=== PATIENT | female | born 1960 | race Caucasian/White ===

== ENCOUNTER 2018-05-14 12:09 | Emergency (ER) | payer OTHER, SELFPAY ==
[2018-05-14] VITALS (53 sets, daily range): BP systolic 98–179; BP diastolic 66–109; PULSE 60–76; RESP 12–27; TEMP 36.7; O2SAT 93–97
--- NOTE | 2018-05-14 12:18 | DI.RAD_ITS ---
SYMPTOM/DIAGNOSIS: CHEST PAIN PA AND LATERAL CHEST: The heart is normal in size. The lungs are clear. The mediastinal structures and pleura appear intact. CONCLUSION: Normal chest.
[2018-05-14 12:48] LABS: Absolute Basophil Count 0.06 k/cumm (0.0-0.2); Absolute Eosinophil Count 0.18 k/cumm (0.0-0.7); Absolute Lymphocyte Count 1.95 k/cumm (1.2-3.4); Absolute Monocyte Count 0.24 k/cumm (0.11-0.7); Absolute Neutrophil Count 3.66 k/cumm (1.2-6.7); Atypical Lymphocytes % 7; Diff Comment Manual Differential; HGB 15.2 g/dL (12.0-15.5); Mean Corp. HGB Concentration 33.8 g/dL (32.0-36.0); Mean Corpuscular Hemoglobin 31.4 pg (27.0-33.0); Mean Platelet Volume 11.5 fL (8.0-11.0); Platelet Count 251 x1000/uL (130-400); RBC 4.84 m/cumm (4.00-5.20); RBC Distribution Width 13.2 % (11.7-14.6); RBC Morphology Normal
[2018-05-14 12:55] LABS: ALT 33 U/L (12-78); AST 24 U/L (15-37); Albumin 3.6 g/dL (3.4-5.0); Alkaline Phosphatase 93 U/L (46-116); BUN 18 mg/dL (7-18); Bilirubin, Direct 0.11 mg/dL (0.00-0.20); Bilirubin, Total 0.5 mg/dL (0.2-1.0); CREATININE 0.82 mg/dL (0.55-1.02); Calcium 8.9 mg/dL (8.5-10.1); Chloride 104 mmol/L (98-107); Glucose 94 mg/dL (70-100); Lipase 55 U/L (73-393); Magnesium 2.1 mg/dL (1.8-2.4); Sodium 141 mmol/L (136-145); Total Protein 7.3 g/dL (6.4-8.2)
[2018-05-14 12:56] LABS: Troponin I < 0.02 ng/mL (0.00-0.06)
[2018-05-14 13:42] LABS: D-Dimer 490 ng/mlFEU (<500)
--- NOTE | 2018-05-14 15:42 | W.ED.GENAD ---
Discharge Plan Disposition Patient Disposition: HOME Condition: Improving Discharge Details Chief Complaint: Chest Pain Clinical Impression: Chest wall pain, Neck pain, Headache Primary Care Provider: Ann-Marie Shipley ED Provider: Belle Ryan Home Meds and New Rx's Prescriptions: Continue cholecalciferol (vitamin D3) 1,000 UNIT capsule 1,000 unit PO DAILY RF: 0 liothyronine [Cytomel] 5 MCG tablet 5 mcg PO DAILY Qty: 90 RF: 12 levothyroxine 75 MCG tablet 75 mcg PO DAILY Qty: 90 RF: 12 Discharge Instructions Instructions: Chest Wall Pain (ED), General Headache (ED), Neck Pain (ED) Additional Instructions: Drink plenty of fluids and get plenty of rest. You will receive a call from radiology regarding date and time for outpatient stress test. You will receive a call from care management regarding a follow-up appointment with your primary care doctor. Return to the emergency department for any worsening or new concerning symptoms. Discharge Data Discharge Date/Time-TO BE ENTERED AT DEPARTURE: 05/14/18 18:08 Discharge Physician: Belle Ryan Medical Decision Making 57-year-old female who presents to the ED with a complaint of intermittent chest tightness off and on for years, returned left chest since last night. Resolved and then returned this morning. No associated symptoms. Pain currently 4/10. She also admits to bilateral neck pain and headache. Denies fever, cough, shortness of breath, nausea, vomiting or dizziness. Wells score low. No DVT/PE risk factors. Blood pressure hypertensive at 179/94. Remainder vitals within normal limits. Patient appears nontoxic and in no acute distress. Her left anterior chest is tender to palpation. She denies injury. There is no evidence of trauma. Her abdomen is soft and nontender. Her lungs are clear to auscultation. No calf swelling or tenderness. No meningeal signs. Afebrile. EKG notes a rate of 71, sinus, no acute ST elevation or depression, QTc 415. QRS 82. Differential diagnosis includes musculoskeletal chest pain, ACS, PE, dissection, anxiety. Will do a cardiac workup, d-dimer, chest x-ray and give a dose of Toradol. Labs reviewed and unremarkable. Troponin negative. D-dimer negative. Chest x-ray negative. 1700 --second troponin negative. Patient states she feels much better and is requesting to go home. States headache is resolved. States neck and chest pain much improved. Patient states she has had this pain for years and is frustrated why she cannot find a diagnosis. She states she has been told before that she has atypical chest pain. Last stress test 2014 negative. Will arrange for outpatient stress test. Patient placed on care management list to arrange for follow-up appointment with her primary care doctor within the next week. Patient was instructed return here immediately if worse. HPI General Mode of arrival: ambulatory. Date/Time Provider Initiated Documentation: 05/14/18 12:17. Limitations to Documentation: no limitations. Information obtained by: patient. HPI Narrative: Patient is a 57-year-old female presents the ED with a complaint of left-sided chest pain since last night. Patient states she feels diffuse anterior chest tightness as well. Patient states she has had similar chest tightness off and on for years for which she has had workups which have been negative. She had a negative stress test in 2013. Patient states she also has a diffuse headache as well as tightness in her neck. She states her chest pain is 7/10 at its worst and is currently 4/10. She has not taken any medication for this pain. She denies any aggravating or alleviating factors. She denies fever, cough, shortness of breath, nausea, vomiting, dizziness, recent surgeries, leg pain or swelling. She states she recently traveled on a flight to [place] this past weekend with flight duration of 90 minutes. Past medical history: None Surgical history: Appendectomy, , hysterectomy, tonsillectomy Social history: Occasional alcohol, denies tobacco or drugs Medications: Synthroid, Cytomel, vitamin D3 Allergies: None PCP: Dr. Shipley Related Data Home Medications Medication Instructions Recorded Confirmed cholecalciferol (vitamin D3) 1,000 unit PO DAILY 06/30/13 05/14/18 levothyroxine 75 mcg PO DAILY #90 tab-cap 12/04/17 05/14/18 liothyronine [Cytomel] 5 mcg PO DAILY #90 tab-cap 12/04/17 05/14/18 Previous Rx's Medication Instructions Recorded levothyroxine 75 mcg PO DAILY #90 tab-cap 12/04/17 liothyronine [Cytomel] 5 mcg PO DAILY #90 tab-cap 12/04/17 Allergies Allergy/AdvReac Type Severity Reaction Status Date / Time No Known Allergies Allergy Unverified 05/14/18 12:23 General Stated Complaint: Chest Pain TIFFANY: 2 Review of Systems Review of Systems All systems reviewed & are unremarkable except as noted in HPI and below Constitutional Denies chills, Denies excessive sweating, Denies fatigue, Denies fever(s), Denies weakness and Denies weight loss Eyes Reports system reviewed and no additional complaints, except as docu and Denies blurry vision ENT Denies vertigo, Denies dizziness, Denies otalgia, Denies nasal congestion, Denies sore throat and Denies throat swelling Cardiovascular Reports chest pain, Denies syncope, Denies rapid heart rate and Denies dyspnea Respiratory Denies dyspnea Gastrointestinal Denies abdominal pain, Denies diarrhea and Denies vomiting Genitourinary Denies hematuria, Denies dysuria and Denies flank pain Musculoskeletal Denies back pain and Denies joint swelling Integumentary/Breasts Denies lesions and Denies rash Neurologic Denies behavioral changes, Denies confusion, Denies vertigo, Denies dizziness, Denies syncope and Denies weakness Psychiatric Denies behavioral changes, Denies confusion and Denies depression Endocrine Denies excessive sweating and Denies fatigue Hematologic/Lymphatic Denies easy bruising and Denies lymphadenopathy Allergic/Immunologic Denies throat swelling PFSH Family History Mother Cerebrovascular accident Father Neoplasm Sister No problems noted. Brother No problems noted. Grandfather No problems noted. Grandfather No problems noted. Grandmother CAD (coronary artery disease) Grandmother No problems noted. Sister No problems noted. Daughter No problems noted. Daughter No problems noted. Daughter No problems noted. Social History household members: none marital status: current occupational status: employed current occupation: [employer] ([employer]) frequency: 3-4 times per week duration: 15-30 minutes/day Smoking/Tobacco Use Status: Never alcohol intake: current alcohol intake frequency: a few times a month substance use type: does not use bethany/zoroastrianism: Muslim special bethany needs: No Surgical History Appendectomy section (06/30/91) section (06/30/94) hysterectomy (11/27/08) Exam Const General: cooperative and healthy appearing Orientation: alert and awake HENMT Head: normal to inspection Ears: hearing grossly normal bilaterally and external ears normal General nose exam: external nose normal Face and sinus: normal facial exam Mouth: oral mucosae normal Teeth and gingiva: dentition normal Throat: posterior oropharynx normal Eyes General: appearance normal, both eyes and all related structures Eyelids: eyelids normal Pupils: PERRL EOM: EOM intact bilaterally Neck Neck: normal visual inspection Lymphatic: no lymphadenopathy noted Chest Chest: normal inspection of the chest and tenderness (Left anterior chest left of midline of sternum. No edema, ecchymosis or rash) Resp Effort & Inspection: normal respiratory effort and able to speak in complete sentences Auscultation: clear to auscultation bilaterally Cardio Rate: regular rate Rhythm: regular rhythm GI Inspection: normal to inspection Palpation: soft, not firm, no guarding, no hepatosplenomegaly, no masses and nontender Auscultation: normal bowel sounds Back/Spine/Pelvis Back: no CVA tenderness Skin General skin exam: no rashes or lesions noted Neuro General: alert and awake Cognition: normal cognition Speech: speech normal Gait: normal gait Motor: muscle tone normal throughout and strength 5/5 throughout Sensory Exam: no sensory deficits noted Extrem General: normal to inspection, full ROM and normal capillary refill Psych Appearance: grossly normal Mental Status: mental status grossly normal Speech and Movement: speech and movement normal Affect: normal affect Thought Process: normal Course Reevaluation(s) Additional Reevaluation(s): Laboratory Tests Range/Units 05/14/18 15:13 WBC (4.4-10.8) k/cumm RBC (4.00-5.20) m/cumm Hgb (12.0-15.5) g/dL Hct (36.0-46.0) % MCV (80-95) fL MCH (27.0-33.0) pg MCHC (32.0-36.0) g/dL RDW (11.7-14.6) % Plt Count (130-400) x1000/uL MPV (8.0-11.0) fL Immature Gran % Neutrophils % Lymphocytes % Monocytes % Eosinophils % Basophils % Absolute Neutrophils (1.2-6.7) k/cumm Absolute Lymphocytes (1.2-3.4) k/cumm Absolute Monocytes (0.11-0.7) k/cumm Absolute Eosinophils (0.0-0.7) k/cumm Absolute Basophils (0.0-0.2) k/cumm Differential Comment Atypical Lymphocytes RBC Morphology D-Dimer (<500) ng/mlFEU Sodium (136-145) mmol/L Potassium (3.5-5.1) mmol/L Chloride (98-107) mmol/L Carbon Dioxide (21.0-32.0) mmol/L Anion Gap (3-11) mmol/L BUN (7-18) mg/dL Creatinine (0.55-1.02) mg/dL Estimated GFR/1.73 m2 (mL/min/1.73m2) Glucose (70-100) mg/dL Calcium (8.5-10.1) mg/dL Magnesium (1.8-2.4) mg/dL Total Bilirubin (0.2-1.0) mg/dL Conjugated Bilirubin (0.00-0.20) mg/dL AST (15-37) U/L ALT (12-78) U/L Alkaline Phosphatase (46-116) U/L Troponin I (0.00-0.06) ng/mL < 0.02 Total Protein (6.4-8.2) g/dL Albumin (3.4-5.0) g/dL Lipase (73-393) U/L Vital Signs Temperature 98.1 F 05/14/18 12:19 Pulse 72 05/14/18 12:19 Respiratory Rate 16 05/14/18 12:19 Blood Pressure 179/94 H 05/14/18 12:19 Pulse Oximetry 96 05/14/18 12:19 Temperature 98.1 F 05/14/18 12:19 Temperature Source Skin 05/14/18 12:19 Pulse 72 05/14/18 12:19 Respiratory Rate 24 05/14/18 12:27 Respiratory Effort Non-Labored 05/14/18 12:27 Respiratory Depth Normal 05/14/18 12:27 Respiratory Pattern Normal 05/14/18 12:27 Blood Pressure 179/94 H 05/14/18 12:19 Pulse Oximetry 96 05/14/18 12:19 Oxygen Delivery Method Room Air 05/14/18 12:19 Oxygen Flow Rate 0 05/14/18 12:19 Pain Level 4 05/14/18 12:27 Lab/Test Results Lab/Test Results: Laboratory Tests Range/Units 10/16/18 10/16/18 10/16/18 12:20 12:20 12:20 WBC (4.4-10.8) k/cumm 6.10 RBC (4.00-5.20) m/cumm 4.84 Hgb (12.0-15.5) g/dL 15.2 Hct (36.0-46.0) % 45.0 MCV (80-95) fL 93.0 MCH (27.0-33.0) pg 31.4 MCHC (32.0-36.0) g/dL 33.8 RDW (11.7-14.6) % 13.2 Plt Count (130-400) x1000/uL 251 MPV (8.0-11.0) fL 11.5 H Immature Gran % See Differential Neutrophils % 60.0 Lymphocytes % 25.0 Monocytes % 4.0 Eosinophils % 3.0 Basophils % 1.0 Absolute Neutrophils (1.2-6.7) k/cumm 3.66 Absolute Lymphocytes (1.2-3.4) k/cumm 1.95 Absolute Monocytes (0.11-0.7) k/cumm 0.24 Absolute Eosinophils (0.0-0.7) k/cumm 0.18 Absolute Basophils (0.0-0.2) k/cumm 0.06 Differential Comment Manual differential Atypical Lymphocytes 7 RBC Morphology Normal D-Dimer (<500) ng/mlFEU 490 Sodium (136-145) mmol/L 141 Potassium (3.5-5.1) mmol/L 4.0 Chloride (98-107) mmol/L 104 Carbon Dioxide (21.0-32.0) mmol/L 30.0 Anion Gap (3-11) mmol/L 7.0 BUN (7-18) mg/dL 18 Creatinine (0.55-1.02) mg/dL 0.82 Estimated GFR/1.73 m2 (mL/min/1.73m2) >= 60.00 Glucose (70-100) mg/dL 94 Calcium (8.5-10.1) mg/dL 8.9 Magnesium (1.8-2.4) mg/dL 2.1 Total Bilirubin (0.2-1.0) mg/dL 0.5 Conjugated Bilirubin (0.00-0.20) mg/dL 0.11 AST (15-37) U/L 24 ALT (12-78) U/L 33 Alkaline Phosphatase (46-116) U/L 93 Troponin I (0.00-0.06) ng/mL < 0.02 Total Protein (6.4-8.2) g/dL 7.3 Albumin (3.4-5.0) g/dL 3.6 Lipase (73-393) U/L 55 L
[2018-05-14] MEDS: Ketorolac 30 MG/ML VIAL IVP (16:01)
[2018-05-14 16:38] LABS: Troponin I < 0.02 ng/mL (0.00-0.06)
--- NOTE | 2018-05-15 09:09 | PDOC.ERCMPRO ---
Care Management Progress Note 05/15/18-Pt seen for chest wall pain on 05/14/[address] Levi. Stress test ordered,referral faxed and CM confirmed it has been received. F/U request within 1 week faxed to [facility] as Dr. Liana Shipley is Pt's PCP.
== END 2018-05-14 18:08 | disposition home or self-care (01) ==
PROVIDERS: Emergency Provider Physician Assistant; PCP Family Medicine
DX: R07.89 Other chest pain (principal); M54.2 Cervicalgia; R51 Headache
CPT/HCPCS: 36415; 80053; 80076; 83690; 93005; 96374; 99285; 71046; 83735; 84484; 85025; 85379; 93010

== ENCOUNTER 2018-12-03 11:22 | Outpatient (CLI) | payer OTHER, SELFPAY ==
--- NOTE | 2018-12-03 11:09 | DI.RAD_ITS ---
SYMPTOM/DIAGNOSIS: LT KNEE PAIN, M25.562 LEFT KNEE: Four views. No priors. There is mild periarticular spurring of the posterior patella. The joint spaces are otherwise well maintained. The bones are normally mineralized and intact. The soft tissues are unremarkable. A small joint effusion is present. IMPRESSION: Minimal osteoarthritis of the left knee.
== END 2018-12-03 11:42 ==
PROVIDERS: PCP Family Medicine; Visit Provider Family Medicine
DX: M25.562 Pain in left knee (principal); M17.12 Unilateral primary osteoarthritis, left knee; M25.462 Effusion, left knee
CPT/HCPCS: 73564

== ENCOUNTER 2018-12-17 00:17 | Outpatient (CLI) | payer OTHER, SELFPAY ==
--- NOTE | 2018-12-17 10:47 | DI.MRI_ITS ---
SYMPTOMS/DIAGNOSIS: LEFT KNEE SPRAIN, MEDIAL PAIN/SWELLING, NO KNOWN INJURY MRI OF THE LEFT KNEE: Comparison is made with plain films dated November,. The exam is somewhat limited by patient body habitus and motion. Fat-suppressed T2 axial, T1 and fat-suppressed T2 coronal, proton density and fat-suppressed T2 sagittal and proton density oblique sagittal sequences were performed. There is a small joint effusion. There is a small Howard's cyst. The cruciate and collateral ligaments and extensor mechanism appear intact. The medial meniscus appears mildly peripherally displaced and somewhat diminutive. There is some intrasubstance signal, but no definite intrasubstance tear. The menisci are not optimally evaluated due to mild motion and somewhat low resolution. No lateral meniscal tear is visible. There is some thinning of the patellar cartilage; however, this is also not well evaluated. A small subchondral cyst is seen in the tibia. IMPRESSION: Limited exam due to patient body habitus and mild motion. Degenerative changes are seen in the menisci and of the patellar cartilage. Small joint effusion and small Howard's cyst are also present.
--- NOTE | 2018-12-17 16:42 | DI.VRAD_ITS ---
EXAM: MR Left Lower Extremity Without Contrast, Knee EXAM DATE/TIME: 12/17/2018 11:36 AM CLINICAL HISTORY: 58 years old, female; Knee; Left; Patient HX: No history of surgery, no known injury, medial pain and swelling. TECHNIQUE: Imaging protocol: MR of the Left Lower extremity without contrast. Exam focused on the knee. COMPARISON: CR XR knee LT 4V AP,lat,annabella,pat 12/03/2018 10:58 AM FINDINGS: BONES/JOINTS/CARTILAGE: Patellofemoral compartment: There is a small joint effusion. There is thinning of the patellar articular cartilage. Femorotibial compartments: The medial lateral joint spaces are fairly well-preserved. Extensor mechanism: . No significant abnormality of the distal quadriceps tendon or patellar tendon. Medial meniscus:. There is a thin area of abnormal increased signal extending from the joint capsule to the inferior articular surface close to the free edge of the meniscus. Lateral meniscus: No definite tear Medial capsule/supporting structures: No acute tear Lateral capsule/supporting structures: No acute tear Anterior cruciate ligament: Unremarkable. No tear. Posterior cruciate ligament: Unremarkable. No tear. Musculature: Unremarkable. Soft tissues: There is a small amount of fluid in the semitendinosus bursa measuring 2.3 x 0.8 x 3.5 cm. IMPRESSION: 1. Findings consistent with a small oblique tear through the posterior horn of the medial meniscus. 2. Small joint effusion and popliteal cyst. 3. Mild chondromalacia patella. Dictated and Authenticated by: Jadiel Medellin MD. Ordering:CYN Jacobsen MD
== END 2018-12-17 00:37 ==
PROVIDERS: PCP Family Medicine; Visit Provider Family Medicine
DX: M25.562 Pain in left knee (principal); S83.8X2A Sprain of other specified parts of left knee, initial encounter; M17.12 Unilateral primary osteoarthritis, left knee; M25.462 Effusion, left knee; M71.22 Synovial cyst of popliteal space [Baker], left knee
CPT/HCPCS: 73721

== ENCOUNTER 2019-08-13 00:52 | Outpatient (CLI) | payer OTHER, SELFPAY ==
[2019-08-13 07:49] LABS: HGB 14.9 g/dL (12.0-15.5)
[2019-08-13 08:34] LABS: ALT 37 U/L (14-59); AST 20 U/L (15-37); Albumin 3.6 g/dL (3.4-5.0); Alkaline Phosphatase 78 U/L (46-116); Anion Gap 5.4 mmol/L (3-11); BUN 21 mg/dL (7-18); Bilirubin, Total 0.4 mg/dL (0.2-1.0); CO2 30.6 mmol/L (21.0-32.0); CREATININE 0.83 mg/dL (0.55-1.02); Calculated LDL 140 mg/dL; Chloride 107 mmol/L (98-107); Cholesterol 207 mg/dL (<200); Glucose 102 mg/dL (74-106); HDL Cholesterol 55 mg/dL (40-60); Potassium 4.3 mmol/L (3.5-5.1); Sodium 143 mmol/L (136-145); TSH (W/Ref FT4) 2.39 uIU/mL (0.36-3.74); Total Protein 6.6 g/dL (6.4-8.2); Triglyceride 64 mg/dL (<150)
== END 2019-08-13 01:12 ==
PROVIDERS: PCP Nurse Practitioner Adult Health; Visit Provider Nurse Practitioner Adult Health
DX: D64.9 Anemia, unspecified (principal); E03.9 Hypothyroidism, unspecified; R06.02 Shortness of breath; R07.89 Other chest pain; Z13.220 Encounter for screening for lipoid disorders; Z51.81 Encounter for therapeutic drug level monitoring; Z68.41 Body mass index [BMI] 40.0-44.9, adult; Z82.49 Family history of ischemic heart disease and other diseases of the circulatory system
CPT/HCPCS: 36415; 80053; 80061; 84443; 85014; 85018

== ENCOUNTER 2019-08-21 15:57 | Outpatient (REF) | payer OTHER, SELFPAY ==
--- NOTE | 2019-08-21 16:15 | PAPFT_PTH ---
PATIENT: Dianne Mckeon LOC: [facility] U#:[id number] AGE/SX: 58/F ROOM: RE08/21/[address]: Felicity Soni APRN : 1960 BED: DIS: 08/21/2019 SPEC #: [id number] RECD: 08/21/19 18:14 STATUS: YISEL REShantel #: [id number] VINCE: 08/21/19 16:[address]: Felicity Soni DEPT: [facility] Cytology RECD BY: Blossom Malone Tissues: 1 - CX/ENDOCX FOR PAP SMEARS Procedures: PAP THIN PREP/UVM Screening HPV DNA PROBE Comments: [id number]
== END 2019-08-21 16:17 ==
LOC: LBN 15:57
PROVIDERS: PCP Nurse Practitioner Adult Health; Visit Provider Nurse Practitioner Adult Health
DX: Z12.4 Encounter for screening for malignant neoplasm of cervix (principal); Z11.51 Encounter for screening for human papillomavirus (HPV)
CPT/HCPCS: 88142; 87624

== ENCOUNTER 2019-09-25 02:45 | Outpatient (CLI) | payer OTHER, SELFPAY ==
--- NOTE | 2019-09-25 15:58 | DI.MAMMO_ITS ---
EXAM: MAMMO SCREENING CLINICAL HISTORY: screening Z12.39 TECHNIQUE: Mammograms were interpreted according to the usual protocol including computer analysis w Ensequence CAD system, tomosynthesis and C-view imaging. COMPARISON: 2010 through 2018 FINDINGS: The breasts are composed of mainly fatty density , Breast Density category A. No suspicious masses or suspicious microcalcifications are seen. No skin thickening or abnormal axillary lymph nodes are seen. There has been no significant change from prior exams. IMPRESSION: BIRADS Category 1, negative mammogram. Yearly screening mammography is recommended. Breast density category A.
== END 2019-09-25 03:05 ==
PROVIDERS: PCP Nurse Practitioner Adult Health; Visit Provider Nurse Practitioner Adult Health
DX: Z12.31 Encounter for screening mammogram for malignant neoplasm of breast (principal)
CPT/HCPCS: 77063; 77067

== ENCOUNTER 2020-04-02 04:14 | Outpatient (CLI) | payer OTHER, SELFPAY ==
--- NOTE | 2020-04-02 08:00 | DI.MRI_ITS ---
EXAM: MR BRAIN WO CLINICAL HISTORY: new onset headache with vertigo, NEW ONSET FLYNN, R51. TECHNIQUE: Multiplanar multisequence MRI of the brain was performed. CONTRAST MATERIAL: Noncontrast COMPARISON: No exams were available for comparison FINDINGS: VENTRICLES AND EXTRA AXIAL SPACES: Normal in size and morphology for the patient's age. HEMORRHAGE: None. CEREBRAL PARENCHYMA: No focus of restricted diffusion to suggest acute infarct. No space-occupying le narendra identified. MIDLINE SHIFT: None. BRAINSTEM/CEREBELLUM: Normal. VISUALIZED PARANASAL SINUSES/MASTOIDS: Clear. Vascular flow voids: Intact. Orbits and pituitary: Unremarkable. IMPRESSION: Unremarkable MRI of the brain. DATA REPOSITORY:
== END 2020-04-02 04:34 ==
PROVIDERS: PCP Nurse Practitioner Adult Health; Visit Provider Psychiatry & Neurology Neurology
DX: R51 Headache (principal); R42 Dizziness and giddiness
CPT/HCPCS: 70551

== ENCOUNTER 2020-08-18 04:33 | Outpatient (CLI) | payer OTHER, SELFPAY ==
[2020-08-18 09:25] LABS: Hemoglobin A1C 5.4 % (<5.7)
[2020-08-18 10:13] LABS: Anion Gap 5.2 mmol/L (3-11); BUN 16 mg/dL (7-18); CO2 30.8 mmol/L (21.0-32.0); CREATININE 0.84 mg/dL (0.55-1.02); Calcium 9.2 mg/dL (8.5-10.1); Calculated LDL 131 mg/dL (<100); Chloride 107 mmol/L (98-107); Cholesterol 209 mg/dL (<200); Glucose 94 mg/dL (74-106); HDL Cholesterol 61 mg/dL (40-60); Potassium 4.7 mmol/L (3.5-5.1); Sodium 143 mmol/L (136-145); TSH (W/Ref FT4) 2.22 uIU/mL (0.36-3.74); Triglyceride 85 mg/dL (<150)
== END 2020-08-18 04:53 ==
PROVIDERS: PCP Nurse Practitioner Adult Health; Visit Provider Nurse Practitioner Adult Health
DX: R73.01 Impaired fasting glucose (principal); E78.00 Pure hypercholesterolemia, unspecified; E03.9 Hypothyroidism, unspecified; R03.0 Elevated blood-pressure reading, without diagnosis of hypertension; F32.9 Major depressive disorder, single episode, unspecified
CPT/HCPCS: 36415; 80048; 80061; 83036; 84443

== ENCOUNTER 2020-09-29 01:22 | Outpatient (CLI) | payer OTHER, SELFPAY ==
--- NOTE | 2020-09-29 07:30 | DI.MAMMO_ITS ---
EXAM: MG MAMMO SCREENING CLINICAL HISTORY: screening,z12.39 TECHNIQUE: Bilateral full field digital CC and MLO mammographic images were obtained with 3D tomosyn thesis and utilizing computer aided detection (CAD). COMPARISON: Available for comparison. FINDINGS: Masses/Architectural Distortion: None seen. Microcalcifications: No suspicious pleomorphic-type are seen. Skin Thickening/Nipple Retraction: None. IMPRESSION: 1. No significant interval change with no specific features of malignancy noted. 2. Unless there is more urgent need, screening mammography is recommended, as per [employer] guidelines. BI-RADS Category 1 - Negative Breast Density - Category A - Almost entirely fatty Breast density category C or D implies that the patient has dense breast tissue. Dense breast tissue is very common and is not abnormal but dense breast tissue can make it harder to find cancer on a ma mmogram. Also, dense breast tissue may increase their breast cancer risk. This information about the result of the mammogram report was provided to the patient to raise their awareness. Use this report when you speak with the patient about their risks for breast cancer, which includes their family hist ory. At that time, you may recommend for more screening tests (Ultrasound or MRI) as they might be us eful based on their risk. A negative radiographic report should not delay biopsy if a dominant or clinically suspicious mass is present. Up to ten percent of cancers are not identified on mammography. A negative report may reinforce clinical impression. Adenosis and dense breasts may obscure an underlying neoplasm. False positive reports average 6 to 10%. Patient will receive a letter notifying them of these results.
== END 2020-09-29 01:42 ==
PROVIDERS: PCP Nurse Practitioner Adult Health; Visit Provider Nurse Practitioner Adult Health
DX: Z12.31 Encounter for screening mammogram for malignant neoplasm of breast (principal)
CPT/HCPCS: 77063; 77067

== ENCOUNTER 2021-01-18 03:20 | Outpatient (CLI) | payer OTHER, SELFPAY ==
[2021-01-18 13:17] LABS: Abs Immature Grans 0.01 10^3/uL (0.0-0.06); Absolute Basophil Count 0.05 10^3/uL (0.0-0.2); Absolute Eosinophil Count 0.16 10^3/uL (0.0-0.7); Absolute Lymphocyte Count 2.12 10^3/uL (1.2-3.4); Absolute Monocyte Count 0.47 10^3/uL (0.1-0.8); Absolute Neutrophil Count 3.88 10^3/uL (1.2-6.7); Basophils % 0.7; Eosinophils % 2.4; HCT 43.3 % (36.0-46.0); HGB 14.7 g/dL (11.2-15.7); Immature Grans % 0.1; Lymphocytes % 31.7; MCH 31.1 pg (27.0-33.0); MCHC 33.9 % (32.0-36.0); MCV 91.5 fL (80-95); MPV 10.4 fL (8.0-11.0); Neutrophils % 58.1; Nucleated RBC 0 %; Platelet Count 239 10^3/uL (130-400); RBC 4.73 10^6/uL (3.93-5.22); RDW 12.4 % (11.7-14.6); RDW-SD 41.4 fL; WBC 6.69 10^3/uL (4.4-10.8)
[2021-01-18 16:20] LABS: ALT 33 U/L (14-59); AST 24 U/L (15-37); Albumin 3.9 g/dL (3.4-5.0); Alkaline Phosphatase 87 U/L (46-116); Anion Gap 10.5 mmol/L (3-11); BUN 19 mg/dL (7-18); Bilirubin, Total 0.5 mg/dL (0.2-1.0); CO2 26.5 mmol/L (21.0-32.0); CREATININE 0.8 mg/dL (0.55-1.02); Chloride 106 mmol/L (98-107); Glucose 105 mg/dL (74-106); Potassium 4.5 mmol/L (3.5-5.1); Sodium 143 mmol/L (136-145); TSH (W/Ref FT4) 0.99 uIU/mL (0.36-3.74); Total Protein 6.8 g/dL (6.4-8.2); Vitamin B12 391 pg/mL (193-986)
== END 2021-01-18 03:21 | disposition home or self-care (01) ==
LOC: LBO 03:20
PROVIDERS: PCP Nurse Practitioner Adult Health; Visit Provider Nurse Practitioner Adult Health
DX: R53.83 Other fatigue (principal); E03.9 Hypothyroidism, unspecified
CPT/HCPCS: 36415; 80053; 82607; 84443; 85025

== ENCOUNTER 2021-11-01 04:27 | Outpatient (CLI) | payer OTHER, SELFPAY ==
[2021-11-01 10:27] LABS: Hemoglobin A1C 5.6 % (<5.7)
[2021-11-01 11:32] LABS: Anion Gap 9.4 mmol/L (3-11); BUN 15 mg/dL (7-18); CO2 28.6 mmol/L (21.0-32.0); CREATININE 0.9 mg/dL (0.55-1.02); Calcium 9.2 mg/dL (8.5-10.1); Calculated LDL 132 mg/dL (<100); Chloride 105 mmol/L (98-107); Cholesterol 207 mg/dL (<200); Glucose 95 mg/dL (74-106); HDL Cholesterol 60 mg/dL (40-60); Potassium 4.5 mmol/L (3.5-5.1); Sodium 143 mmol/L (136-145); TSH (W/Ref FT4) 1.34 uIU/mL (0.36-3.74); Triglyceride 76 mg/dL (<150)
== END 2021-11-01 04:28 | disposition home or self-care (01) ==
LOC: LBO 04:27
PROVIDERS: PCP Nurse Practitioner Adult Health; Visit Provider Nurse Practitioner Adult Health
DX: R73.01 Impaired fasting glucose (principal); E03.9 Hypothyroidism, unspecified; Z13.220 Encounter for screening for lipoid disorders; Z51.81 Encounter for therapeutic drug level monitoring
CPT/HCPCS: 36415; 80048; 80061; 83036; 84443

== ENCOUNTER 2021-11-11 00:25 | Outpatient (CLI) | payer OTHER, SELFPAY ==
--- NOTE | 2021-11-11 07:53 | DI.MAMMO_ITS ---
Exam(s) MAMMO SCREENING EXAM: MAMMO SCREENING CLINICAL HISTORY: screening,Z12.39 TECHNIQUE: Bilateral full field digital CC and MLO mammographic images were obtained with 3D tomosyn thesis and utilizing computer aided detection (CAD). COMPARISON: Available for comparison. FINDINGS: Masses/Architectural Distortion: None seen. Microcalcifications: No suspicious pleomorphic-type are seen. Skin Thickening/Nipple Retraction: None. IMPRESSION: 1. No significant interval change with no specific features of malignancy noted. 2. Unless there is more urgent need, screening mammography is recommended, as per [employer] guidelines. BI-RADS Category 1 - Negative Breast Density - Category B - Scattered areas of fibroglandular density Breast density category C or D implies that the patient has dense breast tissue. Dense breast tissue is very common and is not abnormal but dense breast tissue can make it harder to find cancer on a ma mmogram. Also, dense breast tissue may increase their breast cancer risk. This information about the result of the mammogram report was provided to the patient to raise their awareness. Use this report when you speak with the patient about their risks for breast cancer, which includes their family hist ory. At that time, you may recommend for more screening tests (Ultrasound or MRI) as they might be us eful based on their risk. A negative radiographic report should not delay biopsy if a dominant or clinically suspicious mass is present. Up to ten percent of cancers are not identified on mammography. A negative report may reinforce clinical impression. Adenosis and dense breasts may obscure an underlying neoplasm. False positive reports average 6 to 10%. Patient will receive a letter notifying them of these results.
== END 2021-11-11 00:45 ==
PROVIDERS: PCP Nurse Practitioner Adult Health; Visit Provider Nurse Practitioner Adult Health
DX: Z12.31 Encounter for screening mammogram for malignant neoplasm of breast (principal)
CPT/HCPCS: 77063; 77067

== ENCOUNTER 2022-10-16 06:10 | Day surgery (SDC) | payer OTHER, SELFPAY ==
--- NOTE | 2022-10-15 17:04 | W.ANESPRE ---
General Info Date of Service Date Performed: 10/16/22 Height: 5 ft 1.5 in Weight: 109.372 kg Body Mass Index (BMI): 44.8 Surgical Procedure: Operation Date: 10/16/22 07:35 Proposed Procedure Side Surgeon pratik Merlos MD Meds Allergies and Home Medications Allergies Allergy/AdvReac Type Severity Reaction Status Date / Time No Known Allergies Allergy Verified 10/13/22 12:52 Home Medication Medication Instructions Recorded cholecalciferol (vitamin D3) 25 1,000 unit PO DAILY 06/30/13 mcg (1,000 unit) capsule bupropion HCl 150 mg 24 hr tablet, 150 mg PO QAM #90 tabs 11/02/21 extended release levothyroxine 75 mcg tablet 75 mcg PO DAILY #90 tab-caps 11/02/21 liothyronine 5 mcg tablet (Cytomel) 5 mcg PO DAILY #90 tab-caps 11/02/21 Current Visit Medications: Current Medications Generic Name Dose Route Start Last Admin Trade Name Freq PRN Reason Stop Dose Admin Ringer's Solution 1,000 mls @ 80 mls/hr 10/16/22 06:00 IV 11/12/22 23:59 INFUSION BETHANIE IV Miscellaneous Supplies 1 each 10/16/22 06:00 Iv Access IV 11/12/22 23:59 DIRECTED BETHANIE Sodium Chloride 0 ml 10/16/22 06:00 Normal Saline Flush 10 Ml Syr IV 11/12/22 23:59 PRN PRN Sodium Chloride 0 ml 10/16/22 06:00 Normal Saline 10 Ml Vial IJ 11/12/22 23:59 DIRECTED PRN Sterile Water 0 ml 10/16/22 06:00 Water,Injection,Sterile 10 Ml Vial IJ 11/12/22 23:59 DIRECTED PRN PFSH Active Problems Active Problems: Problem Status Onset Code Depression ~2019 F32.9 Impaired fasting glucose ~07/2019 R73.01 Atypical chest pain ~2014 R07.89 BMI 40.0-44.9, adult 04/06/15 Z68.41 Acquired hypothyroidism 06/30/13 E03.9 Medical History Medical History Acute left-sided thoracic back pain (08/03/16) Adjustment disorder with mixed anxiety and depressed mood 06/30/13 related to loss of Angina pectoris syndrome 11/09/14 Elevated BP without diagnosis of hypertension Single time 11/2019, nil else Grief 06/30/13 age 49 History of gluten sensitivity (08/01/13) A. Despathy Knee pain L--improved s/p PT New onset headache Severe episodes x2 2019; migraine variant, NEG CT-head; Neuro consult Fall 2019 Rosacea (06/30/13) Snoring Sleep study--2012 upper airway resistant syndrome with associated sleep fragmentation (oral julee rec) Upper airway resistance syndrome s/p sleep study 2012 Vertigo Severe episodes x2 2019; migraine variant, NEG CT-head; Neuro consult Fall 2019 Surgical History Surgical History (Updated 10/16/22 @ 06:35 by Isabell Wiseman RN) H/O section 07/30/90 H/O: hysterectomy Cervix remains (cont pap screening) 07/30/08 Abnormal uterine bleeding w/uterine fibroids History of hysterectomy Hx of appendectomy S/P appendectomy (~1978) Tobacco Smoking/Tobacco Use Status: Never Passive smoking exposure: No Alcohol Alcohol Intake: current Alcohol intake frequency: a few times a month Alcohol type: wine Substance Use Substance use: Never Substance use type: does not use Vital Signs and Lab Results Vital Signs Most Recent Vital Signs in EMR: Temp Pulse Resp BP Pulse Ox 36.2 C L 74 16 155/94 H 98 10/16/22 06:25 10/16/22 06:25 10/16/22 06:25 10/16/22 06:25 10/16/22 06:25 Lab Results Blood Type / Crossmatch: No Data to Display Complete Blood Count: No Data to Display Complete Metabolic Panel: No Data to Display Liver Function Panel: No Data to Display Coagulation Panel: No Data to Display Cardiac Panel: No Data to Display Arterial Blood Gas: No Data to Display Venous Blood Gas: No Data to Display Pancreas Panel: No Data to Display Thyroid Panel: No Data to Display Infectious Disease: No Data to Display Blood Cultures: No Data to Display Toxicology Panel: No Data to Display Imaging and Studies Imaging and Studies Study information below may be from another EMR and interpreted by another provider. Please see original notes in EMR for more complete details. Stress Test Summary: 09/14: no defects noted, LVEF 62%. Anesthesia Assessment and Plan Anesthesia History Personal History: No History of Anesthesia Complications Family History: No Family History of Anesthesia Complications Exercise Tolerance Exercise Tolerance: Metabolic Equivalents>4 Cardiac & Pulmonary Exam Cardiac Exam: Normal S1/S2 Heart Sounds Pulmonary Exam: Clear Bilateral Breath Sounds Implantable Cardiac Device Does patient have a Pacemaker or an ICD?: No Airway Exam Known Difficult Airway: No Mallampati Class: 3 Mouth Opening: Normal (> 3cm) Thyromental Distance: Greater than 3 cm Neck Range of Motion: Full ROM Neck Circumference: Normal Teeth Condition: Normal Dentition ASA Classification ASA Score: ASA 3 Emergency Case?: No NPO Status NPO Status: NPO Clears >2 hours, Solids >8 hours Anesthesia Plan Resuscitation Status: Full Code Anesthesia Technique: General Anesthesia Airway Planned: Natural Airway Monitors Used: Standard Monitors Preoperative Comments:: 61 yo female for screening colo. Sig PMHx: depression/anxiety, BMI >40, back pain, hypothyroid (on replacement), vertigo, migraine, ROSSANA, never smoker, occ EtOH.
--- NOTE | 2022-10-15 20:06 | PDOC.DSDIS_ITS ---
Date of service: 10/16/22 Time of Service: 07:46 Discharge Plan Disposition Patient Disposition: Home Condition: Good Discharge Details Reason For Visit: Colonoscopy Attending Provider: Garfield Merlos Primary Care Provider: Felicity Soni Home Meds and New Rx's Prescriptions: Continued bupropion HCl 150 mg tablet extended release 24 hr 150 mg PO QAM Qty: 90 3RF Rx Instructions: Dose reduction 11/02/21 levothyroxine 75 mcg tablet 75 mcg PO DAILY Qty: 90 3RF Rx Instructions: Thyroid; take on empty stomach in morning liothyronine [Cytomel] 5 mcg tablet 5 mcg PO DAILY Qty: 90 3RF cholecalciferol (vitamin D3) 1,000 UNIT capsule 1,000 unit PO DAILY Discharge Instructions Additional Instructions: Dianne, we were able to complete your colonoscopy without any difficulty today. The quality of the preparation was outstanding. I did not see any evidence of tumors or polyps. You should have another colonoscopy in 10 years 1. If tolerated, consume a soft, low fiber diet for 1-2 days. 2[address] Do not drive, drink alcohol, operate machinery, make critical decisions, or do activities that require coordination or balance for 24 hours. 3. Because air was put into your colon during the procedure, expelling air from your rectum (passing gas or farting) is normal. 4. You may not have a bowel movement for 1-3 days because of the colonoscopy pre p. This is normal. 5. Go directly to the emergency room if you notice any of the following: Develop chills (warm to touch), or if you have a thermometer and your temperature is above 101 Difficulty breathing or difficultly swallowing Persistent vomiting Severe abdominal pain, other than gas cramps Severe chest pain Black, tarry stools Any bleeding ? exceeding one tablespoon 6. Call your physician if the site where your intravenous was started becomes red, swollen, painful, and warm to touch. 7. Your physician has reviewed your pre-procedure medications. Please continue to take those medications as previously ordered. You will be given specific information/education regarding any changes to your medications before leaving. Activity:: Activity as Tolerated Diet:: As Tolerated Discharge Orders Discharge Orders: Discharge Order (Routine); Ordered 10/15/22 Ordered By: Garfield Merlos DS: Diagnosis Discharge Diagnosis (1) Screening for colon cancer: Status: Acute Asessment and Plan: Normal colonoscopy, follow-up in 10 years
--- NOTE | 2022-10-15 20:07 | W.COLOREPORT ---
Date of service: 10/16/22 Time of Service: 07:47 Colonoscopy Report Date of procedure: 10/16/22 Pre-op diagnosis general: Screening colonoscopy Post-op diagnosis procedure note: same Procedure: Colonoscopy Surgeon: Garfield Merlos Anesthesia Type: General:No Airway Estimated blood loss (mL): 0 Complications: None Disposition: same day Indications: Dianne is 61 years old and she is undergoing her second screening colonscopy Prep: Miralax/Dulcolax Procedure Start Time: 07:28 Procedure End Time: 07:38 Retraction Time: 6 Findings: Normal colonoscopy Procedure Description: After the induction of monitored anesthetic care, and with the patient in left lateral decubitus position, I began by performing an external anorectal exam.? Perineum and skin were normal, as was the anal verge.? There was no evidence of external hemorrhoids.? Next, I performed a digital rectal exam.? I did not appreciate any abnormal findings.? Next, I advanced a colonoscope into the rectal vault.? I performed retroflexion.? This was normal.? Using insufflation, I then advanced the colonoscope beyond the rectal folds and into the sigmoid colon before advancing towards the cecum.? The quality of the prep was outstanding.? The scope was noted to be in the cecum by identification of the ileocecal valve and appendiceal orifice.? I then began withdrawing the colonoscope using repeated irrigation as necessary for full evaluation of the colonic mucosa. ?Once the scope was withdrawn to the level of the rectum, great care was taken to examine portions of the rectal folds.? Finally, the scope was withdrawn and the patient was brought to the same-day surgery recovery unit as the anesthetic wore off. ?The findings and instructions were shared with the patient prior to discharge.
[2022-10-16 06:25] VITALS: BP 155/94; PULSE 74; RESP 16; TEMP 36.2; O2SAT 98
[2022-10-16] MEDS: Lactated Ringers 1,000 ML 80 ML IV (06:54)
[2022-10-16 06:57] VITALS: BMI 44.8
[2022-10-16 07:43] VITALS: BP 132/72; PULSE 78; RESP 16; TEMP 36; O2SAT 93
--- NOTE | 2022-10-16 07:56 | W.ANESPOSTOP ---
Postoperative Evaluation Date, Time and Location Date Performed: 10/16/22 Time Performed: 07:48 Patient Location: Day Surgery Unit Vital Signs Most Recent Imported Vital Signs: Most Recent Vital Signs Temp Pulse Resp BP Pulse Ox 36 C L 78 16 132/72 93 10/16/22 07:43 10/16/22 07:43 10/16/22 07:43 10/16/22 07:43 10/16/22 07:43 Pain Score Most Recent Pain Score: Most Recent Pain Score Pain Level 0 10/16/22 07:43 Assessment Mental Status: Awake (Alert & Oriented to Patient Baseline) Airway and Respiratory Function: Patent airway with normal (patient baseline) respiratory exam Cardiovascular Function: Hemodynamically Stable Hydration Status: Adequately Hydrated Nausea & Vomiting: No Nausea or Vomiting Pain: Pt. Denies Any Pain Peripheral Nerve Block: Patient did not receive a nerve block
[2022-10-16 08:15] VITALS: BP 142/99; PULSE 71; RESP 16; TEMP 36.4; O2SAT 95
== END 2022-10-16 08:25 | disposition home or self-care (01) ==
PROVIDERS: PCP Nurse Practitioner Adult Health; Visit Provider Surgery
PROC: 0DJD8ZZ Inspection of Lower Intestinal Tract, Via Natural or Artificial Opening Endoscopic (ICD-10-PCS; CPT 45378; principal; 2022-10-16 07:30)
DX: Z12.11 Encounter for screening for malignant neoplasm of colon (principal); R73.01 Impaired fasting glucose
CPT/HCPCS: 45378

== ENCOUNTER 2022-10-16 22:12 | Emergency (ER) | payer OTHER, SELFPAY ==
[2022-10-16 22:19] VITALS: BP 157/109; PULSE 86; RESP 24; TEMP 36.6; O2SAT 98
--- NOTE | 2022-10-16 22:45 | DI.CT_ITS ---
Exam(s) CT ABDOMEN PELVIS W EXAM: CT ABDOMEN PELVIS W CLINICAL HISTORY: diffuse, severe pain, colonoscopy today TECHNIQUE: Imaging Protocol: Axial computed tomography images with coronal and sagittal reformatted images were created and reviewed CONTRAST MATERIAL: Intravenous: Omnipaque 350 Contrast volume:100 mL Oral: No COMPARISON: CT CHEST FOR PULMONARY EMBOLUS from 01/10/2012 FINDINGS: ABDOMEN: Lung Bases: Normal where visualized. Liver: Normal density. No measurable mass. Portal, Superior Mesenteric, and Splenic Veins: Unremarkable. Gallbladder and Biliary Tract: No radiodense calculus or dilation. Pancreas: Normal density, no abnormal calcifications or inflammatory process. Spleen: Normal. Adrenals: No masses seen. Kidneys: Normal size, contour and axis. No radiodense stones or obstructive uropathy. No masses seen. Abdominal Aorta: Abdominal portion non-dilated. Atherosclerosis. Bowel: No evidence of bowel obstruction or bowel wall thickening. No evidence of appendicitis. Peritoneal Cavity: No ascites, collection or mesenteric inflammatory response. No free air. Lymph Nodes: Within normal limits. Bones: Within normal limits for the patient's age. Soft Tissues: Unremarkable. PELVIS: Bladder: Symmetric distention, no gross wall thickening. Reproductive Organs: Unremarkable as visualized. Lymph Nodes: Within normal limits. Bones: Within normal limits for the patient's age. IMPRESSION: 1. No acute abdominal or pelvic process. 2. No evidence of pneumoperitoneum. RADIATION DOSE DELIVERED: 1,407.4mGy.cm Total DLP DATA REPOSITORY: All CT scans at this facility are submitted to the National Radiology Data Registry (NRDR) Dose Index Registry (DIR) with the [employer] ([employer]). RADIATION OPTIMIZATION: All CT scans at this facility use at least one of these dose optimization te chniques: automated exposure control; mA and/or kV adjustment per patient size (includes targeted exa ms where dose is matched to clinical indication); or iterative reconstruction.
--- NOTE | 2022-10-16 22:58 | W.ED.GENAD ---
Discharge Plan Disposition Patient Disposition: Home Condition: Improving Discharge Details Clinical Impression: Abdominal pain, Nausea, S/P colonoscopy Primary Care Provider: Felicity Soni ED Provider: Belle Ryan Home Meds and New Rx's Prescriptions: Continued bupropion HCl 150 mg tablet extended release 24 hr 150 mg PO QAM Qty: 90 3RF Rx Instructions: Dose reduction 11/02/21 levothyroxine 75 mcg tablet 75 mcg PO DAILY Qty: 90 3RF Rx Instructions: Thyroid; take on empty stomach in morning liothyronine [Cytomel] 5 mcg tablet 5 mcg PO DAILY Qty: 90 3RF cholecalciferol (vitamin D3) 1,000 UNIT capsule 1,000 unit PO DAILY Discharge Instructions Instructions: Acute Nausea and Vomiting (ED), Abdominal Pain (ED) Additional Instructions: Your blood tests and CT imaging today are reassuring and show no evidence of acute concerning or significant findings. Drink plenty of fluids and get plenty of rest. Take Zofran as needed and directed for nausea or vomiting. Follow-up with your primary care doctor or general surgery in 1 week as needed. Return to the emergency department with any worsening or new concerning symptoms such as fever, persistent vomiting, worsening pain or any other concerns. Referrals: Garfield Merlos MD [ [facility] STAFF PHYSICIAN] - Discharge Data Discharge Date/Time-TO BE ENTERED AT DEPARTURE: 10/17/22 02:55 Discharge Physician: Belle Ryan Medical Decision Making <MINISTERIO Ross - Last Filed: 10/17/22 19:43> Patient is a pleasant 61-year-old female with past medical history pertinent for hypothyroidism, elevated BMI, presenting today with chief complaint of abdominal pain status post colonoscopy. She reports that she had a unremarkable prep. States that the colonoscopy went well and she had good reports from Dr. Merlos who performed this morning. States that she ate a small amount when she first got home without any complication. States that she initially was passing some flatus but this is since stopped. States that she then ate some ground turkey and subsequently developed some significant abdominal discomfort that has continued to persist. Denies any fevers or chills. Endorses nausea but no vomiting. No bowel headache. Reviewed C-sections, hysterectomy, appendectomy. Exam, appears nontoxic and hemodynamically stable. She has diffuse abdominal discomfort. No chest pain or shortness of breath. No focal area of tenderness. Her bowel sounds are hypoactive. Concern for potential perforation. Also considered bowel obstruction. Will move forward with CT and laboratory evaluation. We will give morphine for analgesia, Zofran for nausea. No elevation in the white count. Patient does look like she is slightly concentrated with a hemoglobin of 16.3, hematocrit of 46.5. ANC elevated at 8.52. CMP significant for creatinine of 1.1, this is elevated from patient's baseline of 0.9. No elevation of her lipase with. We will move forward with CT for further evaluation. At the end of my shift, care transition to Dr. Ryan with imaging and disposition pending. <Belle Ryan, DO - Last Filed: 10/22/22 00:02> MINISTERIO Malloy Patient is a pleasant 61-year-old female with past medical history pertinent for hypothyroidism, elevated BMI, presenting today with chief complaint of abdominal pain status post colonoscopy. She reports that she had a unremarkable prep. States that the colonoscopy went well and she had good reports from Dr. Merlos who performed this morning. States that she ate a small amount when she first got home without any complication. States that she initially was passing some flatus but this is since stopped. States that she then ate some ground turkey and subsequently developed some significant abdominal discomfort that has continued to persist. Denies any fevers or chills. Endorses nausea but no vomiting. No bowel headache. Reviewed C-sections, hysterectomy, appendectomy. Exam, appears nontoxic and hemodynamically stable. She has diffuse abdominal discomfort. No chest pain or shortness of breath. No focal area of tenderness. Her bowel sounds are hypoactive. Concern for potential perforation. Also considered bowel obstruction. Will move forward with CT and laboratory evaluation. We will give morphine for analgesia, Zofran for nausea. No elevation in the white count. Patient does look like she is slightly concentrated with a hemoglobin of 16.3, hematocrit of 46.5. ANC elevated at 8.52. CMP significant for creatinine of 1.1, this is elevated from patient's baseline of 0.9. No elevation of her lipase with. We will move forward with CT for further evaluation. At the end of my shift, care transition to Dr. Ryan with imaging and disposition pending. Dr. Ryan 0030 --please see MINISTERIO Malloy's note for initial presentation, exam and plan. Case endorsed to follow-up on labs and imaging and final disposition. 61-year-old female status post colonoscopy this morning presents with diffuse crampy abdominal pain that started this evening. She admits to nausea but denies any vomiting. She had been passing gas but states this is stopped. No bowel movement today. She reports she ate ground turkey prior to onset of abdominal pain. She did not take anything for pain at home but has had some relief with IV morphine and has no nausea after given antiemetics here. Her abdomen is soft but mildly diffusely tender. She states her pain is returning so we will give a dose of Dilaudid and Pepcid IV and reassess. Labs reviewed. Normal white blood cell count. Urinalysis notes trace leukocyte esterase with 5-10 WBCs but many epithelial cells and appears contaminated. CT reviewed and negative. 0200 -- CT reviewed and negative for acute findings. Patient reassessed and she states her pain is improving and feels comfortable going home. Case discussed with Dr. Merlos who performed patient's colonoscopy -- symptoms may be related to gas and she can try [id number] Gas-X, Maalox or Pepcid. Advised to follow a bland diet. Advised to follow up with the primary care doctor for re-evaluation as needed. Usual and customary return precautions given prior to discharge. Medical Records Medical records reviewed: Yes I reviewed the patient's medical records. Imaging Data Radiologic Study: Radiologist's impression: CT Abdomen And Pelvis With Contrast Exam date and time: 10/17/2022 12:23 AM Age: 61 years old Clinical indication: Abdominal pain; Prior surgery; Surgery date: 6+ months; Surgery type: Appendectomy, hysterectomy, 2 c-sections; Patient HX: Diffuse, severe pain S/P colonoscopy today TECHNIQUE: Imaging protocol: Computed tomography of the abdomen and pelvis with contrast. Radiation optimization: All CT scans at this facility use at least one of these dose optimization techniques: automated exposure control; mA and/or kV adjustment per patient size (includes targeted exams where dose is matched to clinical indication); or iterative reconstruction. Contrast material: OMNIPAQUE 350; Contrast volume: 100 ml; Contrast route: INTRAVENOUS (IV);? COMPARISON: CR LEFT HIP COMPLETE AP PELVIS 08/28/2016 3:06 PM FINDINGS: Liver: Normal.? Gallbladder and bile ducts: Normal.? Pancreas: Normal.? Spleen: Normal.? Adrenal glands: Normal. No mass. Kidneys and ureters: Normal. Stomach and bowel: Normal. Appendix: Appendix surgically absent. Intraperitoneal space: Unremarkable. No free air. No significant fluid collection. Vasculature: Phleboliths within the pelvis. Minimal atherosclerotic disease of the abdominal aorta. Lymph nodes: Unremarkable. No enlarged lymph nodes. Urinary bladder: Unremarkable as visualized. Reproductive: Uterus surgically absent. Bones/joints: No acute abnormality. Soft tissues: Small fat containing periumbilical hernia. IMPRESSION: No acute abdominal or pelvic abnormality. Lab Data Lab results reviewed: Yes I reviewed the patient's lab results. Labs: Laboratory Tests Range/Units 10/16/22 10/16/22 10/16/22 22:50 22:50 23:51 WBC (4.4-10.8) 10^3/uL 10.71 RBC (3.93-5.22) 10^6/uL 5.17 Hgb (11.2-15.7) g/dL 16.3 H Hct (36.0-46.0) % 46.5 H MCV (80-95) fL 90 MCH (27.0-33.0) pg 31.5 MCHC (32.0-36.0) % 35.1 RDW (11.7-14.6) % 11.9 Plt Count (130-400) 10^3/uL 296 MPV (8.0-11.0) fL 10.2 Immature Gran % 0.3 Neutrophils % 79.5 Lymphocytes % 13.1 Monocytes % 5.6 Eosinophils % 0.8 Basophils % 0.7 Nucleated RBC % (0.0-0.3) % 0.0 Absolute Neutrophils (1.2-6.7) 10^3/uL 8.52 H Absolute Lymphocytes (1.2-3.4) 10^3/uL 1.40 Absolute Monocytes (0.1-0.8) 10^3/uL 0.60 Absolute Eosinophils (0.0-0.7) 10^3/uL 0.09 Absolute Basophils (0.0-0.2) 10^3/uL 0.07 Sodium (136-145) mmol/L 143 Potassium (3.5-5.1) mmol/L 3.7 Chloride (98-107) mmol/L 105 Carbon Dioxide (21.0-32.0) mmol/L 29.1 Anion Gap (3-11) mmol/L 8.9 BUN (7-18) mg/dL 21 H Creatinine (0.55-1.02) mg/dL 1.1 H Est GFR (CKD-EPI 2020) (mL/min/1.73m2) 57.52 Glucose (74-106) mg/dL 127 H Calcium (8.5-10.1) mg/dL 9.6 Magnesium (1.8-2.4) mg/dL 1.9 Total Bilirubin (0.2-1.0) mg/dL 0.5 AST (15-37) U/L 20 ALT (14-59) U/L 37 Alkaline Phosphatase (46-116) U/L 98 Total Protein (6.4-8.2) g/dL 7.7 Albumin (3.4-5.0) g/dL 4.3 Lipase (16-77) U/L 12 L Urine Color (Yellow) Yellow Urine Clarity (Clear) Cloudy Urine pH (5-8) 5.5 Ur Specific [place] (1.005-1.025) >= 1.030 H Urine Protein (Negative) mg/dL Negative Urine Ketones (Negative) mg/dL 15 H Urine Blood (Negative) Negative Urine Nitrite (Negative) Negative Urine Bilirubin (Negative) Negative Urine Urobilinogen (Up to 0.2) mg/dL 0.2 Ur Leukocyte Esterase (Negative) Trace H Urine RBC (0-2) HPF 0-2 Urine WBC (0-5) HPF 5-10 Ur Epithelial Cells (Negative) HPF Many Urine Crystals (Negative) HPF Negative Urine Bacteria (Negative) HPF Moderate Urine Mucus (Negative) Negative Ur Culture Indicated? No/Sq. Contamination Urine Glucose (Negative) mg/dL Negative HPI <MINISTERIO Ross - Last Filed: 10/17/22 19:43> General Date/Time Provider Initiated Documentation: 10/16/22 22:32. Limitations to Documentation: no limitations. Information obtained by: patient, RN notes reviewed and old records reviewed. History of Present Illness 61 year old F presents to the emergency department with the chief complaint of abdominal pain, described as severe, with intensity rated at 7. Quality is described as aching, and is localized to the abdomen. Patient reports no radiation. Patient started experiencing this hour(s) and it has been constant. No relieving factors improve symptom(s), No exacerbating factors reported . Patient notes loss of appetite and nausea/vomiting (nausea, no vomiting); denies chest pain, cough, diaphoresis, fever/chills and shortness of breath. Patient did receive the following treatments prior to arrival, none Related Data Home Medications Medication Instructions Recorded Confirmed cholecalciferol (vitamin D3) 25 1,000 unit PO DAILY 06/30/13 10/16/22 mcg (1,000 unit) capsule bupropion HCl 150 mg 24 hr tablet, 150 mg PO QAM #90 tabs 11/02/21 10/16/22 extended release levothyroxine 75 mcg tablet 75 mcg PO DAILY #90 tab-caps 11/02/21 10/16/22 liothyronine 5 mcg tablet (Cytomel) 5 mcg PO DAILY #90 tab-caps 11/02/21 10/16/22 Previous Rx's Medication Instructions Recorded bupropion HCl 150 mg 24 hr tablet, 150 mg PO QAM #90 tabs 11/02/21 extended release levothyroxine 75 mcg tablet 75 mcg PO DAILY #90 tab-caps 11/02/21 liothyronine 5 mcg tablet (Cytomel) 5 mcg PO DAILY #90 tab-caps 11/02/21 Allergies Allergy/AdvReac Type Severity Reaction Status Date / Time No Known Allergies Allergy Verified 10/13/22 12:52 General Stated Complaint: Abd Prob TIFFANY: 3 Review of Systems <MINISTERIO Ross - Last Filed: 10/17/22 19:43> Constitutional Constitutional: Reports as per HPI, Denies chills, Denies fever(s) and Denies headache(s) ENT Ears, Nose, Mouth, and Throat: Denies headache(s) Cardiovascular Cardiovascular: Reports as per HPI, Denies chest pain and Denies dyspnea Respiratory Respiratory: Reports as per HPI, Denies cough and Denies dyspnea Gastrointestinal Gastrointestinal: Reports as per HPI Musculoskeletal Musculoskeletal: Reports as per HPI and Denies back pain Integumentary/Breasts Skin/Breast: Reports as per HPI and Denies rash Neurologic Neurologic: Reports as per HPI and Denies headache(s) [facility] <MINISTERIO Ross - Last Filed: 10/17/22 19:43> All Active Problems (Updated 10/17/22 @ 02:28 by Belle Ryan DO) Acquired hypothyroidism (Chronic 06/30/13) Cytomel started 12/2014 to see if would help weight BMI 40.0-44.9, adult (Chronic 04/06/15) Atypical chest pain (Chronic ~2014) Intermittent; started 04/06/2015 with NEG work-up Impaired fasting glucose (Chronic ~07/2019) 07/2019: 102 with office A1C 5.4% Depression (Chronic ~2019) Screening for colon cancer (Acute) Abdominal pain (Acute) Nausea (Acute) S/P colonoscopy (Acute) Medical History (Updated 10/17/22 @ 02:28 by Belle Ryan DO) Acute left-sided thoracic back pain (08/03/16) Adjustment disorder with mixed anxiety and depressed mood 06/30/13 related to loss of Angina pectoris syndrome 11/09/14 Elevated BP without diagnosis of hypertension Single time 11/2019, nil else Grief 06/30/13 age 49 History of gluten sensitivity (08/01/13) A. Despathy Knee pain L--improved s/p PT New onset headache Severe episodes x2 Summer/Fall 2019; migraine variant, NEG CT-head; Neuro consult Fall 2019 Rosacea (06/30/13) Snoring Sleep study--2012 upper airway resistant syndrome with associated sleep fragmentation (oral julee rec) Upper airway resistance syndrome s/p sleep study 2012 Vertigo Severe episodes x2 2019; migraine variant, NEG CT-head; Neuro consult Fall 2019 Surgical History (Updated 10/17/22 @ 02:28 by Belle Ryan DO) H/O section 07/30/90 H/O: hysterectomy Cervix remains (cont pap screening) 07/30/08 Abnormal uterine bleeding w/uterine fibroids History of hysterectomy Hx of appendectomy S/P appendectomy (~1978) Family History Mother , UNKNOWN at age 56. Stroke TIA Heart disease Hypertension Father Cancer Sister No problems noted. Brother No problems noted. Maternal Grandfather , 91 No problems noted. Paternal Grandfather No problems noted. Maternal Grandmother , 75 CAD (coronary artery disease) Paternal Grandmother No problems noted. Sister No problems noted. Daughter Anxiety Daughter No problems noted. Daughter No problems noted. Social History Smoking/Tobacco Use Status: Never Smoking risk assessment performed?: Yes Alcohol Intake: current Alcohol Intake frequency: a few times a month Alcohol type: wine Drug use: Never Substance use type: does not use Adopted: No Caregiver/Support person: No Foster care: No Household members: none Housing: house Number of Children: 3 Communication Needs: None and Corrective Lenses Education Level: college Details: BS Degree Do you need help understanding health information?: Rarely current occupation: [employer] Pets and animals: Yes Pets and animals: cat(s) Sexually active: No Do you think of yourself as: straight/heterosexual Current gender identity: female What is your relationship status?: How often do you talk on the phone with friends or family?: three or more times per week How often do you get together with friends or relatives?: twice per week How often do you attend nondenominational or synagogue services?: 4 or more times per year Do you belong to any clubs or organized social groups?: yes Panel score (0-1 are the most socially isolated patients): 3 What type of physical activity do you participate in: walking Duration: 15-30 minutes/day Frequency: 3-4 times per week Tarsha/Religious: Evangelical Special tarsha needs: No Seatbelt use: always Drive intox or ride w/intox carrier driver: No Working smoke detector in home: Yes Fire extinguisher in home: Yes Carbon monox detector in home: Yes Do you feel safe at home: Yes Do you feel safe in your relationship?: Yes Exam <MINISTERIO Ross - Last Filed: 10/17/22 19:43> Const General: cooperative, healthy appearing, uncomfortable, no acute distress and well developed Nutritional Appearance: well nourished and overweight Orientation: alert and awake HENMT Head: normal to inspection Mouth: moist mucous membranes Resp Effort & Inspection: normal respiratory effort, able to speak in complete sentences and no respiratory distress Auscultation: clear to auscultation bilaterally, no rales, no rhonchi and no wheezes Cardio Rate: regular rate Rhythm: regular rhythm Heart Sounds: S1 normal and S2 normal GI Inspection: normal to inspection Palpation: soft, no hepatosplenomegaly, no guarding, no masses, not rigid, tender (diffusely tender) with no rebound tenderness and No ascites Percussion: normal to percussion Auscultation: hypoactive bowel sounds Back/Spine/Pelvis Back: no CVA tenderness Skin General skin exam: no rashes or lesions noted Trauma: no lacerations or abrasions Neuro General: patient alert and patient awake Cognition: normal cognition Speech: speech normal Gait: normal gait Psych Appearance: grossly normal and well kempt Mental Status: mental status grossly normal Speech and Movement: speech and movement normal Course <MINISTERIO Ross - Last Filed: 10/17/22 19:43> Vital Signs Vital signs: Vital Signs Temperature 36.6 C 10/16/22 22:19 Pulse 86 10/16/22 22:19 Respiratory Rate 24 10/16/22 22:19 Blood Pressure 157/109 H 10/16/22 22:19 Pulse Oximetry 98 10/16/22 22:19 Temperature 36.6 C 10/16/22 22:19 Temperature Source Oral 10/16/22 22:19 Pulse 86 10/16/22 22:19 Respiratory Rate 24 10/16/22 22:19 Blood Pressure 157/109 H 10/16/22 22:19 Blood Pressure Position Sitting 10/16/22 22:19 Pulse Oximetry 98 10/16/22 22:19 Oxygen Delivery Method Room Air 10/16/22 22:19 Oxygen Flow Rate 0 10/16/22 22:19 Pain Level 7 10/16/22 22:21 Sign Out <MINISTERIO Ross - Last Filed: 10/17/22 19:43> Sign Out Data: Sign Out Comment: Care transition to Dr. Ryan with imaging pending. Significant abdominal pain after colonoscopy this morning. Last updated by Lilian Malloy PA at 10/16/22 23:58
[2022-10-16 23:02] LABS: Abs Immature Grans 0.03 10^3/uL (0.0-0.06); Absolute Basophil Count 0.07 10^3/uL (0.0-0.2); Absolute Eosinophil Count 0.09 10^3/uL (0.0-0.7); Absolute Neutrophil Count 8.52 10^3/uL (1.2-6.7); Basophils % 0.7; Eosinophils % 0.8; HCT 46.5 % (36.0-46.0); HGB 16.3 g/dL (11.2-15.7); Immature Grans % 0.3; Lymphocytes % 13.1; MCH 31.5 pg (27.0-33.0); MCHC 35.1 % (32.0-36.0); MCV 90 fL (80-95); MPV 10.2 fL (8.0-11.0); Monocytes % 5.6; Neutrophils % 79.5; Platelet Count 296 10^3/uL (130-400); RBC 5.17 10^6/uL (3.93-5.22); RDW 11.9 % (11.7-14.6); RDW-SD 39.3 fL; WBC 10.71 10^3/uL (4.4-10.8)
[2022-10-16 23:14] LABS: ALT 37 U/L (14-59); AST 20 U/L (15-37); Albumin 4.3 g/dL (3.4-5.0); Alkaline Phosphatase 98 U/L (46-116); Anion Gap 8.9 mmol/L (3-11); BUN 21 mg/dL (7-18); Bilirubin, Total 0.5 mg/dL (0.2-1.0); CO2 29.1 mmol/L (21.0-32.0); CREATININE 1.1 mg/dL (0.55-1.02); Calcium 9.6 mg/dL (8.5-10.1); Chloride 105 mmol/L (98-107); Estimated GFR 57.52 (mL/min/1.73m2); Glucose 127 mg/dL (74-106); Lipase 12 U/L (16-77); Magnesium 1.9 mg/dL (1.8-2.4); Potassium 3.7 mmol/L (3.5-5.1); Sodium 143 mmol/L (136-145); Total Protein 7.7 g/dL (6.4-8.2)
[2022-10-16] MEDS: MORPHine 4 MG/ML SYR IVP (23:24)
[2022-10-16] MEDS: Ondansetron 4 MG/2 ML VIAL IVP (23:25)
[2022-10-16 23:58] LABS: Bilirubin Negative (Negative); Blood Negative (Negative); Clarity Cloudy (Clear); Glucose Negative (Negative); Ketones 15 mg/dL (Negative); Leukocyte Esterase Trace (Negative); Nitrite Negative (Negative); Specific Gravity >= 1.030 (1.005-1.025); Urobilinogen 0.2 mg/dL (Up to 0.2); pH 5.5 (5-8)
[2022-10-17 00:07] LABS: Bacteria Moderate HPF (Negative); C & S Indicated? No/Sq. Contamination; Crystals Negative HPF (Negative); Epithelial Cells Many HPF (Negative); Mucus Negative (Negative); RBC 0-2 HPF (0-2)
[2022-10-17] MEDS: Omnipaque 350 MG/ML 100 ML BTL IJ (00:20)
[2022-10-17] MEDS: Normal Saline - Diluent 50 ML VIAL IV (00:21)
[2022-10-17] MEDS: Normal Saline Flush 10 ML SYR IVP (00:22)
[2022-10-17] MEDS: Famotidine 20 MG/2 ML VIAL IVP (01:04)
[2022-10-17] MEDS: HYDROmorphone 2 MG/ML SYR 0.5 MG IVP (01:04)
[2022-10-17] MEDS: Normal Saline 1,000 ML 1000 ML IV (01:22)
--- NOTE | 2022-10-17 01:44 | DI.VRAD_ITS ---
PROCEDURE INFORMATION: Exam: CT Abdomen And Pelvis With Contrast Exam date and time: 10/17/2022 12:23 AM Age: 61 years old Clinical indication: Abdominal pain; Prior surgery; Surgery date: 6+ months; Surgery type: Appendectomy, hysterectomy, 2 c-sections; Patient HX: Diffuse, severe pain S/P colonoscopy today TECHNIQUE: Imaging protocol: Computed tomography of the abdomen and pelvis with contrast. Radiation optimization: All CT scans at this facility use at least one of these dose optimization techniques: automated exposure control; mA and/or kV adjustment per patient size (includes targeted exams where dose is matched to clinical indication); or iterative reconstruction. Contrast material: OMNIPAQUE 350; Contrast volume: 100 ml; Contrast route: INTRAVENOUS (IV); COMPARISON: CR LEFT HIP COMPLETE AP PELVIS 08/28/2016 3:06 PM FINDINGS: Liver: Normal. Gallbladder and bile ducts: Normal. Pancreas: Normal. Spleen: Normal. Adrenal glands: Normal. No mass. Kidneys and ureters: Normal. Stomach and bowel: Normal. Appendix: Appendix surgically absent. Intraperitoneal space: Unremarkable. No free air. No significant fluid collection. Vasculature: Phleboliths within the pelvis. Minimal atherosclerotic disease of the abdominal aorta. Lymph nodes: Unremarkable. No enlarged lymph nodes. Urinary bladder: Unremarkable as visualized. Reproductive: Uterus surgically absent. Bones/joints: No acute abnormality. Soft tissues: Small fat containing periumbilical hernia. IMPRESSION: No acute abdominal or pelvic abnormality. Dictated and Authenticated by: Cory Pryor MD. Ordering:NASREEN Quintana MD
[2022-10-17] MEDS: Ondansetron O.D.T. 4 MG TABEF, 3 TABS/BTL PO (02:41)
[2022-10-17 02:44] VITALS: BP 161/88; PULSE 92; RESP 16; TEMP 36.9; O2SAT 94
== END 2022-10-17 02:55 | disposition home or self-care (01) ==
PROVIDERS: Emergency Medicine; Emergency Provider Physician Assistant; PCP Nurse Practitioner Adult Health
DX: G89.18 Other acute postprocedural pain (principal); R10.84 Generalized abdominal pain; R11.0 Nausea; R10.817 Generalized abdominal tenderness; E03.9 Hypothyroidism, unspecified; Z90.49 Acquired absence of other specified parts of digestive tract
CPT/HCPCS: 80053; 83690; 96361; 96374; 96375; 99285; 74177; 81003; 81015; 83735; 85025; 99284; J1170; J2270; J2405; J3490

== ENCOUNTER 2022-10-26 02:34 | Outpatient (CLI) | payer OTHER, SELFPAY ==
[2022-10-26 07:33] LABS: Hemoglobin A1C 5.5 % (<5.7)
[2022-10-26 07:58] LABS: BUN 15 mg/dL (7-18); CREATININE 0.9 mg/dL (0.55-1.02); Calcium 8.8 mg/dL (8.5-10.1); Calculated LDL 120 mg/dL (<100); Chloride 107 mmol/L (98-107); Cholesterol 192 mg/dL (<200); Estimated GFR 73.19 (mL/min/1.73m2); Glucose 112 mg/dL (74-106); HDL Cholesterol 58 mg/dL (40-60); Potassium 4.1 mmol/L (3.5-5.1); Sodium 140 mmol/L (136-145); TSH (W/Ref FT4) 2.01 uIU/mL (0.36-3.74); Triglyceride 71 mg/dL (<150)
== END 2022-10-26 02:35 | disposition home or self-care (01) ==
LOC: LBO 02:34
PROVIDERS: PCP Nurse Practitioner Adult Health; Visit Provider Nurse Practitioner Adult Health
DX: E03.9 Hypothyroidism, unspecified (principal); R73.01 Impaired fasting glucose; F32.9 Major depressive disorder, single episode, unspecified
CPT/HCPCS: 36415; 80048; 80061; 82306; 83036; 84443

== ENCOUNTER 2022-11-29 01:54 | Outpatient (CLI) | payer OTHER, SELFPAY ==
--- NOTE | 2022-11-29 07:00 | DI.MAMMO_ITS ---
Exam(s) MAMMO SCREENING EXAM: MAMMO SCREENING CLINICAL HISTORY: screening,Z12.39 TECHNIQUE: Bilateral full field digital CC and MLO mammographic images were obtained with 3D tomosyn thesis and utilizing computer aided detection (CAD). COMPARISON: Available for comparison. FINDINGS: Masses/Architectural Distortion: On the cleavage view, there is a 4.6 mm nodule in the medial left br east. No areas of architectural distortion are seen. Microcalcifications: No suspicious pleomorphic-type are seen. Skin Thickening/Nipple Retraction: None. IMPRESSION: 1. New 4.6 mm nodule in the medial left breast seen on the cleavage view. 2. This area should be further evaluated with a spot compression view. Limited left breast ultrasoun d may be indicated at that time. BI-RADS Category 0 - Assessment Incomplete: Need additional imaging evaluation Breast Density - Category B - Scattered areas of fibroglandular density Breast density category C or D implies that the patient has dense breast tissue. Dense breast tissue is very common and is not abnormal but dense breast tissue can make it harder to find cancer on a ma mmogram. Also, dense breast tissue may increase their breast cancer risk. This information about the result of the mammogram report was provided to the patient to raise their awareness. Use this report when you speak with the patient about their risks for breast cancer, which includes their family hist ory. At that time, you may recommend for more screening tests (Ultrasound or MRI) as they might be us eful based on their risk. A negative radiographic report should not delay biopsy if a dominant or clinically suspicious mass is present. Up to ten percent of cancers are not identified on mammography. A negative report may reinforce clinical impression. Adenosis and dense breasts may obscure an underlying neoplasm. False positive reports average 6 to 10%. Patient will receive a letter notifying them of these results.
== END 2022-11-29 02:14 ==
LOC: DI 01:54
PROVIDERS: PCP Nurse Practitioner Adult Health; Visit Provider Nurse Practitioner Adult Health
DX: Z12.31 Encounter for screening mammogram for malignant neoplasm of breast (principal)
CPT/HCPCS: 77063; 77067

== ENCOUNTER 2022-12-07 01:42 | Outpatient (CLI) | payer OTHER, SELFPAY ==
--- NOTE | 2022-12-07 10:15 | DI.MAMMO_ITS ---
Exam(s) MAMMO SCREEN CALL BACK UNI US BREAST LT COMPLETE EXAM: MAMMO SCREEN CALL BACK UNI- LEFT AND COMPLETE LEFT BREAST ULTRASOUND CLINICAL HISTORY: 4.6 MM NODULE IN MEDIAL LT BREAST. TECHNIQUE: Unilateral left breast spot mammographic images obtained with 3D tomosynthesisand [employer] computer aided detection (CAD). . Complete LEFT breast Ultrasound was also performed, including all 4 quadrants, the retroareolar regio n, and the ipsilateral axilla. COMPARISON: Prior mammograms were reviewed. This additional imaging was performed due to findings described on the recent screening mammogram of 11/29/2022. FINDINGS: DIAGNOSTIC MAMMOGRAM: Additional mammographic views performed todaydo not dissipate the small nodule described. Proceeded with ultrasound COMPLETE LEFT BREAST ULTRASOUND: Ultrasound performed today reveals no evidence of solid or significant cystic lesions. There are no ultrasound findings to correspond to the small benign-appearing nodule in the medial aspect left anthony st seen on the mammogram, implying that is most probably benign intramammary lymph node. Scanning of the ipsilateral axilla reveals no significant adenopathy. IMPRESSION: 1. Benign left breast findings. Appropriate follow-up is to keep this patient on a yearly mammogram schedule, with earlier imaging i f a self detected breast change is noted.. The patient was informed of these findings and recommendations prior to leaving the department today. BI-RADS Category 2 - Benign Findings Breast Density - Category B - Scattered areas of fibroglandular density Breast density Category C or D implies that the patient has dense breast tissue. Dense breast tissue can make it harder to find cancer on a mammogram. Dense breast tissue is also associated with an incr eased risk of breast cancer. This information about the result of the mammogram report was provided to the patient to raise their awareness. Use this report when you speak with the patient about their risks for breast cancer, which includes their family history. At that time, you may recommend additional screening tests (Ultrasoun d or MRI) as these tests may add significant information. A negative radiographic report should not delay biopsy if a dominant or clinically suspicious mass is present. Up to ten percent of cancers are not identified on mammography. A negative report may reinforce clinical impression. Adenosis and dense breasts may obscure an underlying neoplasm. False positive reports average 6 to 10%. Patient will receive a letter notifying them of these results.
== END 2022-12-07 02:02 ==
PROVIDERS: PCP Nurse Practitioner Adult Health; Visit Provider Nurse Practitioner Adult Health
DX: Z12.31 Encounter for screening mammogram for malignant neoplasm of breast (principal); R92.8 Other abnormal and inconclusive findings on diagnostic imaging of breast; N64.59 Other signs and symptoms in breast
CPT/HCPCS: 76642; 77063; 77067

== ENCOUNTER 2023-11-05 04:12 | Outpatient (CLI) | payer OTHER, SELFPAY ==
[2023-11-05 07:48] LABS: Hemoglobin A1C 5.6 % (<5.7)
[2023-11-05 07:49] LABS: Anion Gap 8.3 mmol/L (3-11); BUN 16 mg/dL (7-18); CO2 29.7 mmol/L (21.0-32.0); CREATININE 1.1 mg/dL (0.55-1.02); Calcium 9.5 mg/dL (8.5-10.1); Calculated LDL 132 mg/dL (<100); Chloride 107 mmol/L (98-107); Cholesterol 215 mg/dL (<200); Estimated GFR 57.17 (mL/min/1.73m2); Glucose 100 mg/dL (74-106); HDL Cholesterol 65 mg/dL (40-60); Potassium 4.3 mmol/L (3.5-5.1); Sodium 145 mmol/L (136-145); TSH (W/Ref FT4) 2.96 uIU/mL (0.36-3.74); Triglyceride 90 mg/dL (<150)
== END 2023-11-05 04:13 | disposition home or self-care (01) ==
LOC: LBO 04:12
PROVIDERS: PCP Nurse Practitioner Adult Health; Visit Provider Nurse Practitioner Adult Health
DX: F32.9 Major depressive disorder, single episode, unspecified (principal); R73.01 Impaired fasting glucose; Z13.220 Encounter for screening for lipoid disorders; E03.9 Hypothyroidism, unspecified
CPT/HCPCS: 36415; 80048; 80061; 83036; 84443

== ENCOUNTER → 2023-12-06 00:30 | Outpatient (CLI) | payer OTHER, SELFPAY ==
--- NOTE | 2023-12-06 12:56 | DI.MAMMO_ITS ---
Exam(s) MAMMO SCREENING EXAM: MAMMO SCREENING CLINICAL HISTORY: screening,z12.39 TECHNIQUE: Bilateral full field digital CC and MLO mammographic images were obtained with 3D tomosyn thesis and utilizing computer aided detection (CAD). COMPARISON: Available for comparison. FINDINGS: Masses/Architectural Distortion: There is a stable nodule seen in the posterior central right breast on the MLO view. No new nodules are seen. No areas of architectural distortion are present. Microcalcifications: No suspicious pleomorphic-type are seen. Skin Thickening/Nipple Retraction: None. IMPRESSION: 1. No significant interval change with no specific features of malignancy noted. 2. Unless there is more urgent need, screening mammography is recommended, as per [employer] guidelines. BI-RADS Category 2 - Benign Findings Breast Density - Category B - Scattered areas of fibroglandular density Breast density category C or D implies that the patient has dense breast tissue. Dense breast tissue is very common and is not abnormal but dense breast tissue can make it harder to find cancer on a ma mmogram. Also, dense breast tissue may increase their breast cancer risk. This information about the result of the mammogram report was provided to the patient to raise their awareness. Use this report when you speak with the patient about their risks for breast cancer, which includes their family hist ory. At that time, you may recommend for more screening tests (Ultrasound or MRI) as they might be us eful based on their risk. A negative radiographic report should not delay biopsy if a dominant or clinically suspicious mass is present. Up to ten percent of cancers are not identified on mammography. A negative report may reinforce clinical impression. Adenosis and dense breasts may obscure an underlying neoplasm. False positive reports average 6 to 10%. Patient will receive a letter notifying them of these results.
== END ==
PROVIDERS: PCP Nurse Practitioner Adult Health; Visit Provider Nurse Practitioner Adult Health
DX: Z12.31 Encounter for screening mammogram for malignant neoplasm of breast (principal)
CPT/HCPCS: 77063; 77067

== ENCOUNTER 2024-03-08 00:20 | Emergency (ER) | payer OTHER, SELFPAY ==
--- NOTE | 2024-03-08 00:15 | RT.EKG_ITS ---
APPROVED REPORT Exam: Resting ECG Reason for Exam: abd pain Patient Location: E HR:76 bpm ECG Measurements Heart Rate 76 AXIS OH 169 P -14 QRSd 76 QRS 20 QT 379 T 25 QTc 427 Conclusion Sinus rhythm...normal P axis, V-rate 60- 99 Normal Electrocardiogram
--- NOTE | 2024-03-08 00:21 | ED.GENADUL_ITS ---
Discharge Plan Disposition Patient Disposition: Home Condition: Good Discharge Details Clinical Impression: Abdominal pain Primary Care Provider: Felicity Soni ED Provider: Albin Croft Iaeger Meds and New Rx's Prescriptions: New omeprazole 40 mg capsule,delayed release(DR/EC) 40 mg PO DAILY Qty: 30 0RF Continued levothyroxine 75 mcg tablet 75 mcg PO DAILY Qty: 90 3RF Rx Instructions: Thyroid; take on empty stomach in morning liothyronine [Cytomel] 5 mcg tablet 5 mcg PO DAILY Qty: 90 3RF ketoconazole 2 % cream 1 applic topical DAILY Qty: 120 6RF Rx Instructions: Apply to toenails once daily cholecalciferol (vitamin D3) 1,000 UNIT capsule 1,000 unit PO DAILY Discharge Instructions Instructions: Abdominal Pain, Adult ED Additional Instructions: You were seen in the ED for upper abdominal pain. Your exam, labs and imaging are all reassuring. Suspect pain may be acid related in nature and will start you on omeprazole until follow-up with primary care. Return to ED for new or worsening pain, chest pain, shortness of breath, black or bloody stool, fever, other concerns. Referrals: Felicity Soni, [employer] SALES CONSULTANT [Primary Care Provider] - [facility] General Mode of arrival: ambulatory . Date/Time Provider Initiated Documentation: 03/08/24 00:21 . Limitations to Documentation: no limitations . Information obtained by: patient and RN notes reviewed . HPI Narrative: Patient presents to ED with upper abdominal pain that began about 8 PM. She has some associated nausea. Pain is in both upper quadrants but does not radiate to the back or the chest. Denies any lower abdominal pain. Denies any shortness of breath. Did not have anything out of the ordinary to eat today. Does not typically have problems with abdominal pain. She does not smoke and rarely drinks alcohol. There is not significant caffeine use. She is status post appendectomy and hysterectomy but still has her gallbladder. Pain has been steady since onset. Related Data Home Medications ?Medication ?Instructions ?Recorded ?Confirmed cholecalciferol (vitamin D3) 25 1,000 unit PO DAILY 06/30/13 03/08/24 mcg (1,000 unit) capsule levothyroxine 75 mcg tablet 75 mcg PO DAILY #90 tab-caps 11/12/23 03/08/24 liothyronine 5 mcg tablet (Cytomel) 5 mcg PO DAILY #90 tab-caps 11/12/23 03/08/24 ketoconazole 2 % topical cream 1 applic topical DAILY #120 grams 01/03/24 03/08/24 omeprazole 40 mg capsule,delayed 40 mg PO DAILY #30 caps 03/08/24 release Previous Rx's ?Medication ?Instructions ?Recorded levothyroxine 75 mcg tablet 75 mcg PO DAILY #90 tab-caps 11/12/23 liothyronine 5 mcg tablet (Cytomel) 5 mcg PO DAILY #90 tab-caps 11/12/23 ketoconazole 2 % topical cream 1 applic topical DAILY #120 grams 01/03/24 omeprazole 40 mg capsule,delayed 40 mg PO DAILY #30 caps 03/08/24 release Allergies Allergy/AdvReac Type Severity Reaction Status Date / Time No Known Allergies Allergy Verified 03/08/24 00:31 General TIFFANY: 3 Review of Systems Narrative: Per HPI Exam Narrative Exam Narrative: Const: Obese female in NAD. VS per triage. HEENT: NC/AT. Normal facial exam. Neck: Supple. Trachea midline. Lungs: Normal respiratory effort. Lungs are clear. Cor: RRR without murmur. Good radial pulses. GI: Soft/ND. Minimal epigastric tenderness. No guarding. Neuro: A+O x 3. Normal speech, mentation, gait. Cranial nerves II - XII grossly intact. No gross motor or sensory deficit. Ext: No C/C/E. Medical Decision Making Medical Records Medical records narrative: Patient presenting to ED with upper abdominal pain, onset about 8 PM without radiation to the back or chest. She has nausea but no vomiting. She has no shortness of breath. Typically does not have any abdominal problems. Minimally tender in the epigastric area. No right upper quadrant tenderness. Differential includes acid related disease, gallbladder disease, pancreatitis. IV established and fluids started. Ondansetron, famotidine, acetaminophen given IV. Laboratory studies sent. CT of the abdomen pelvis ordered. 03:00 - Patient improved after medications though not completely pain-free she is very comfortable. Laboratory studies are unremarkable. Blood count is normal. CMP unremarkable. Lipase and troponin are fine. CT scan per preliminary radiology read without acute pathology. Suspect pain and discomfort is acid related. Will start on omeprazole short-term until follow-up with primary care. Return precautions provided. Discussed with patient who is in agreement with plan. Lab Data Lab results reviewed: Yes I reviewed the patient's lab results. ECG Data Attestation: I personally reviewed and interpreted this ECG (s) as follows: Prior ECG tracings: available for review Interpretation: Normal EKG PFSH All Active Problems (Updated 03/08/24 @ 03:08 by Albin Croft MD) Abdominal pain (Acute) Vertigo (Acute) Severe episodes x2 2019; migraine variant, NEG CT-head; Neuro consult Fall 2019 New onset headache (Acute) Severe episodes x2 Summer/Fall 2019; migraine variant, NEG CT-head; Neuro consult Fall 2019 Screening for colon cancer (Acute) Elevated BP without diagnosis of hypertension (Acute) Single time 11/2019, nil else Snoring (Acute) Sleep study--2012 upper airway resistant syndrome with associated sleep fragmentation (oral julee rec) Onychomycosis (Acute) Tinea pedis (Acute) Plantar verruca (Acute) BMI 40.0-44.9, adult (Chronic 04/06/15) Atypical chest pain (Chronic ~2014) Intermittent; started 04/06/2015 with NEG work-up Impaired fasting glucose (Chronic ~07/2019) 07/2019: 102 with office A1C 5.4% Depression (Chronic ~2019) Medical History Acquired hypothyroidism (06/30/13) Cytomel started 12/2014 to see if would help weight Upper airway resistance syndrome s/p sleep study 2013 Rosacea (06/30/13) Adjustment disorder with mixed anxiety and depressed mood 06/30/13 related to loss of History of gluten sensitivity (08/01/13) A. Despathy Surgical History S/P colonoscopy (~09/2022) Hx of appendectomy H/O section 07/30/90 H/O: hysterectomy Cervix remains (cont pap screening) 07/30/08 Abnormal uterine bleeding w/uterine fibroids Family History Mother , UNKNOWN at age 56. Stroke TIA Heart disease Hypertension Father Cancer Sister No problems noted. Brother No problems noted. Maternal Grandfather , 91 No problems noted. Paternal Grandfather No problems noted. Maternal Grandmother , 75 CAD (coronary artery disease) Paternal Grandmother No problems noted. Sister No problems noted. Daughter Anxiety Daughter No problems noted. Daughter No problems noted. Social History Smoking/Tobacco Use Status: Never Smoking risk assessment performed?: Yes Alcohol Intake: current Alcohol Intake frequency: a few times a month Alcohol type: wine Drug use: Never Substance use type: does not use Adopted: No Caregiver/Support person: No Foster care: No Household members: none Housing: apartment Number of Children: 3 number of grandchildren: 1 Communication Needs: None Education Level: college Details: BS Degree Do you need help understanding health information?: Rarely current occupation: [employer] Pets and animals: Yes (1) Pets and animals: cat(s) Sexually active: No Do you think of yourself as: straight/heterosexual Current gender identity: female What is your relationship status?: How often do you talk on the phone with friends or family?: three or more times per week How often do you get together with friends or relatives?: twice per week How often do you attend mu-ism or confucianist services?: 4 or more times per year Do you belong to any clubs or organized social groups?: yes Panel score (0-1 are the most socially isolated patients): 3 What type of physical activity do you participate in: walking Duration: 15-30 minutes/day Frequency: 3-4 times per week Tarsha/Baptist: Jon Special tarsha needs: No Seatbelt use: always Helmet use: Yes (No reason) Helmet use: never Drive intox or ride w/intox taxi driver supervisor: No Working smoke detector in home: Yes Fire extinguisher in home: Yes Carbon monox detector in home: Yes Do you feel safe at home: Yes Do you feel safe in your relationship?: Yes
[2024-03-08 00:25] VITALS: BP 184/116; PULSE 73; RESP 18; TEMP 36.5; O2SAT 94
[2024-03-08] MEDS: ACETAMINOPHEN 1,000 MG/100 ML BTL 400 MG IVPB (00:46)
[2024-03-08] MEDS: Famotidine 20 MG/2 ML VIAL IVP (00:47)
[2024-03-08] MEDS: Lactated Ringers 1,000 ML 1000 ML IV (00:47)
[2024-03-08] MEDS: Ondansetron 4 MG/2 ML VIAL IVP (00:47)
[2024-03-08 00:51] LABS: Abs Immature Grans 0.02 10^3/uL (0.0-0.06); Absolute Basophil Count 0.07 10^3/uL (0.0-0.2); Absolute Eosinophil Count 0.15 10^3/uL (0.0-0.7); Absolute Lymphocyte Count 2.05 10^3/uL (1.2-3.4); Absolute Monocyte Count 0.62 10^3/uL (0.1-0.8); Absolute Neutrophil Count 6.88 10^3/uL (1.2-6.7); Basophils % 0.7 %; Eosinophils % 1.5 %; HCT 44.1 % (36.0-46.0); HGB 15.2 g/dL (11.2-15.7); Immature Grans % 0.2 %; Lymphocytes % 20.9 %; MCH 31.3 pg (27.0-33.0); MCHC 34.5 % (32.0-36.0); MCV 91 fL (80-95); MPV 10.4 fL (8.0-11.0); Monocytes % 6.3 %; Neutrophils % 70.4 %; Platelet Count 265 10^3/uL (130-400); RBC 4.85 10^6/uL (3.93-5.22); RDW 12.3 % (11.7-14.6); RDW-SD 40.9 fL; WBC 9.79 10^3/uL (4.4-10.8)
[2024-03-08 01:02] LABS: ALT 44 U/L (14-59); AST 29 U/L (15-37); Alkaline Phosphatase 94 U/L (46-116); Anion Gap 8.1 mmol/L (3-11); BUN 21 mg/dL (7-18); Bilirubin, Total 0.43 mg/dL (0.2-1.0); CO2 28.9 mmol/L (21.0-32.0); Calcium 9.9 mg/dL (8.5-10.1); Chloride 104 mmol/L (98-107); Glucose 136 mg/dL (74-106); Magnesium 1.8 mg/dL (1.8-2.4); Potassium 3.8 mmol/L (3.5-5.1); Sodium 141 mmol/L (136-145); Total Protein 7.3 g/dL (6.4-8.2)
[2024-03-08 01:04] LABS: Lipase 13 U/L (16-77); Troponin I < 50 ng/L (< or =60)
--- NOTE | 2024-03-08 01:44 | DI.CT_ITS ---
Exam(s) CT ABDOMEN PELVIS W EXAM: CT ABDOMEN PELVIS W CLINICAL HISTORY: upper abdominal pain. TECHNIQUE: Imaging Protocol: Axial computed tomography images with coronal and sagittal reformatted images were created and reviewed CONTRAST MATERIAL: Intravenous: Omnipaque-350 100cc Oral: None COMPARISON: CT CT ABDOMEN PELVIS W from 10/17/2022 FINDINGS: VISUALIZED LUNG BASES: Small focal pleural based density in the posterior right lower lobe noted esperanza uring 4 millimeters.. No pleural effusions. ABDOMEN: There is no ascites. LIVER: There are no focal hepatic lesions evident. No dilated intrahepatic ducts. GALLBLADDER/BILIARY: No obvious gallbladder pathology. CBD is not dilated. PANCREAS: No evidence of pancreatic mass nor dilatation of the pancreatic duct. SPLEEN: Spleen is not enlarged. No obvious intrasplenic lesions. Splenic and portal veins are paten t. ADRENALS: There are no significant adrenal masses. KIDNEYS:No cysts evident. No solid renal masses. No calculi nor hydronephrosis.. ABDOMINAL AORTA: Abdominal aorta is not enlarged. LYMPH NODES:There is no retroperitoneal nor paraaortic adenopathy. ABDOMINAL WALL: No evidence of significant anterior abdominal wall nor inguinal hernia. GI: There is no evidence of bowel obstruction, free air, nor abscess. PELVIS: GI: No evidence of appendicitis.No evidence of sigmoid diverticulitis. LYMPH NODES: There is no intrapelvic nor inguinal adenopathy. REPRODUCTIVE: Uterus size age-appropriate. There are no abnormal adnexal masses. No free fluid in t he pelvis. URINARY BLADDER: No calculi nor obvious masses evident OSSEOUS: No fractures and no significant osseous lesions. Sacroiliac joints appear unremarkable. IMPRESSION: 1. No significant acute findings in the abdomen pelvis. RADIATION DOSE DELIVERED: Total DLP DATA REPOSITORY: All CT scans at this facility are submitted to the National Radiology Data Registry (NRDR) Dose Index Registry (DIR) with the [employer] (ACR). RADIATION OPTIMIZATION: All CT scans at this facility use at least one of these dose optimization te chniques: automated exposure control; mA and/or kV adjustment per patient size (includes targeted exa ms where dose is matched to clinical indication); or iterative reconstruction.
[2024-03-08] MEDS: Normal Saline - Diluent 50 ML VIAL IJ (01:46)
[2024-03-08] MEDS: Omnipaque 350 MG/ML 100 ML BTL IJ (01:47)
--- NOTE | 2024-03-08 03:03 | DI.VRAD_ITS ---
PROCEDURE INFORMATION: Exam: CT Abdomen And Pelvis With Contrast Exam date and time: 03/08/2024 1:32 AM Age: 63 years old Clinical indication: Other: Upper abd pain TECHNIQUE: Imaging protocol: Computed tomography of the abdomen and pelvis with contrast. Contrast material: OMNIPAQUE 350; Contrast volume: 100 ml; Contrast route: INTRAVENOUS (IV); COMPARISON: CT ABDOMEN PELVIS W 10/17/2022 12:23 AM FINDINGS: Liver: Mild hepatic steatosis. Gallbladder and biliary ducts: Normal. No calcified stones. No ductal dilation. Pancreas: Normal. No ductal dilation. Spleen: Normal. No splenomegaly. Adrenal glands: Normal. No mass. Kidneys and ureters: Normal. No hydronephrosis. Stomach and bowel: There is diverticulosis of the sigmoid colon without acute inflammation. Diffuse under distension of the large bowel from transverse colon to rectum. Appendix: No evidence of appendicitis. Intraperitoneal space: Unremarkable. No free air. No significant fluid collection. Vasculature: Unremarkable. No abdominal aortic aneurysm. Lymph nodes: Unremarkable. No enlarged lymph nodes. Urinary bladder: Unremarkable as visualized. Reproductive: Unremarkable as visualized. Bones/joints: Unremarkable. No acute fracture. Soft tissues: Unremarkable. IMPRESSION: 1. No acute abdominal or pelvic abnormalities. 2. No intra-abdominal abscess or free air. Dictated and Authenticated by: Enmanuel Ramos MD. Ordering:GAMALIEL Talamantes MD
== END 2024-03-08 03:27 | disposition home or self-care (01) ==
PROVIDERS: Emergency Provider Emergency Medicine; PCP Nurse Practitioner Adult Health
DX: R10.10 Upper abdominal pain, unspecified (principal); R11.0 Nausea
CPT/HCPCS: 80053; 83690; 93005; 96365; 96375; 99285; 74177; 83735; 84484; 85025; 93010; 99284; J0131; J2405; J3490

== ENCOUNTER 2024-05-05 07:28 | Emergency (ER) | payer OTHER, SELFPAY ==
[2024-05-05] VITALS (75 sets, daily range): BP systolic 144–177; BP diastolic 83–119; PULSE 60–95; RESP 10–25; TEMP 35.9–36.8; O2SAT 92–98
--- NOTE | 2024-05-05 07:15 | RT.EKG_ITS ---
APPROVED REPORT Exam: Resting ECG Reason for Exam: chest pain Patient Location: E HR:71 bpm ECG Measurements Heart Rate 71 AXIS MA 174 P -18 QRSd 77 QRS 22 QT 386 T 30 QTc 420 Conclusion Sinus rhythm, rate 71 No interval abnormalities No STEMI
--- NOTE | 2024-05-05 07:30 | DI.RAD_ITS ---
Exam(s) XR CHEST 2V PA LATERAL EXAM: XR CHEST 2V PA LATERAL CLINICAL HISTORY: CP. TECHNIQUE: 2D digital imaging was performed. COMPARISON: No exams were available for comparison FINDINGS: 2 views: Heart size is normal. The mediastinum is not widened. Lungs are clear. No infiltrates nor pleural effusions. IMPRESSION: No acute pulmonary findings. DATA REPOSITORY: RADIATION DOSE DELIVERED:
--- NOTE | 2024-05-05 07:39 | ED.GENADUL_ITS ---
Discharge Plan Disposition Patient Disposition: Home Condition: Stable Discharge Details Clinical Impression: Chest pain of unknown etiology, Elevated BP without diagnosis of hypertension Primary Care Provider: Felicity Soni ED Provider: Loree Garcia Home Meds and New Rx's Prescriptions: No Action levothyroxine 75 mcg tablet 75 mcg PO DAILY Qty: 90 3RF Rx Instructions: Thyroid; take on empty stomach in morning liothyronine [Cytomel] 5 mcg tablet 5 mcg PO DAILY Qty: 90 3RF ketoconazole 2 % cream 1 applic topical DAILY Qty: 120 6RF Rx Instructions: Apply to toenails once daily omeprazole 20 mg capsule,delayed release(DR/EC) 20 mg PO DAILY Qty: 40 0RF Rx Instructions: Dose reduction after 40mg x1 month; take 20mg daily x1m, then every other day until RX done, then stop cholecalciferol (vitamin D3) 1,000 UNIT capsule 1,000 unit PO DAILY omeprazole 40 mg capsule,delayed release(DR/EC) 40 mg PO DAILY Qty: 30 0RF Discharge Instructions Instructions: Chest Pain (DC) Additional Instructions: You were seen in the emergency department today for evaluation of chest and back pain. In our department you had a full physical examination performed, had laboratory studies that were reassuring, and did not have any evidence for heart attack, blood clot, or other emergency reasons for your chest pain that would require you to stay at the hospital. You can continue to use ibuprofen and Tylenol for management of ongoing pain and need to follow-up with your primary care provider in the next few days to discuss this visit and any symptoms that change, worsen, or persist. You can always return to the emergency department if you develop change or worsening of your chest pain, shortness of breath, fever, or any other symptoms that cause you concern. Thank you for allowing us to be part of your care. HPI General Mode of arrival: ambulatory . Date/Time Provider Initiated Documentation: 05/05/24 07:29 . Limitations to Documentation: no limitations . Information obtained by: patient and old records reviewed . HPI Narrative: HPI: This is a 63-year-old female patient with a past medical history significant for hypothyroidism, otherwise largely healthy, presenting for evaluation of chest and back pain. The patient reports that she was in her normal state of health yesterday, noted what felt like a knot in her back, like she would benefit from a muscle massage. This morning she woke up and was feeling a sharp pain underneath her left breast, which was constant and nonradiating. Her pain in her back has persisted. She reports that she has not had any history of injury or trauma to the area, has not identified any positi ons that are more comfortable and notes no change with movement, but has noted a worsening of her chest pain with a deep breath. The patient states that she has otherwise been in her normal state of health without fever or chills, shortness of breath, cough or recent illness. The patient reports that 10 years ago she had a intermittent course with atypical chest pain of unknown etiology, but has no diagnosed history of coronary disease, heart attack, etc. Has never had a personal history of thromboembolic disease, has not noted any leg swelling, unilateral calf tenderness, and does not use any replacement hormones. Exam: Gen: Awake and alert, in no apparent distress HEENT: Non-icteric sclera Neck: Supple, no meningismus Lungs: No apparent respiratory distress, normal respiratory effort. Lung sounds are clear and equal bilaterally without wheezes, rhonchi, rales CV: Appears well perfused, chest wall is stable and without reproduction of tenderness to palpation of the chest or back. No overlying skin changes noted. Heart with regular rate and rhythm, strong and symmetrical distal pulses Abdomen: Non-distended, soft MSK: Moves 4 extremities without apparent limitation in ROM. No unilateral calf swelling or tenderness, no peripheral edema Skin: Visualized skin without rashes, cyanosis. Neuro: Normal Gait, no obvious focal deficits or facial asymmetry. Speaks in full, clear sentences. Psych: Appropriate for situation. MDM: This is a 63-year-old female patient presenting for evaluation of chest and back pain. My differential includes but is not limited to ACS, including STEMI, NSTEMI, unstable angina. Considered pericarditis/myocarditis, pulmonary embolism (patient is low risk by Wells but cannot be ruled out by PERC rules), pneumonia, pneumothorax. Considered aortic pathology though the patient is reassuringly without pulse differential or neurodeficits. No evidence on physical examination for reactive airway disease exacerbation pulmonary edema, pleural effusion, or fluid overload. I did not appreciate any overlying skin changes to suggest herpes zoster, and the lack of reproducibility to palpation and movement is less concerning for musculoskeletal abnormalities such as costochondritis, chest wall contusion. No abdominal pain, vomiting, or other GI symptoms to significantly increase my concern for gastritis, esophagitis, Boerhaave's, pancreatitis. Overall I am reassured by the patient's hemodynamic stability, and reviewed her intake EKG which shows normal sinus rhythm without evidence of ischemia, interval abnormality, or ectopy. She does have isolated Q waves in lead III which are unchanged from prior EKGs. We will obtain laboratory studies to include CBC, CMP, troponin, and D-dimer. I will obtain a chest x-ray. ED Course: I independently interpreted the laboratory studies, which show no significant leukocytosis, anemia, or thrombocytopenia. The chemistry panel is without evidence of electrolyte abnormality, kidney dysfunction, or liver injury. D-dimer is negative and the troponin was 5 and 5 at the 1 hour recheck, which per our high-sensitivity troponin algorithm constitutes a low risk evaluation. I independently interpreted the patient's x-ray imaging which shows no focal consolidations, mediastinal enlargement, or other abnormalities which could account for her chest pain. She did receive Tylenol followed by Toradol with improvement but not resolution of her pain. At this time the patient has had a complete medical evaluation without obvious cause of her chest pain, and I am most concerned for nonemergent pathologies such as musculoskeletal pain, atypical chest pain, etc. These findings were shared with the patient, who understands the need to follow-up with her primary care provider in the next few days to discuss this visit and any symptoms that change, worsen, or persist. At this time, the patient has had a full medical evaluation and is safe for discharge to home. They are hemodynamically stable, ambulatory, and tolerating PO. They are understanding of the follow-up plan and return precautions. They left our facility without incident. Loree Garcia MD Related Data Home Medications ?Medication ?Instructions ?Recorded ?Confirmed cholecalciferol (vitamin D3) 25 1,000 unit PO DAILY 06/30/13 05/05/24 mcg (1,000 unit) capsule levothyroxine 75 mcg tablet 75 mcg PO DAILY #90 tab-caps 11/12/23 05/05/24 liothyronine 5 mcg tablet (Cytomel) 5 mcg PO DAILY #90 tab-caps 11/12/23 05/05/24 ketoconazole 2 % topical cream 1 applic topical DAILY #120 grams 01/03/24 05/05/24 omeprazole 40 mg capsule,delayed 40 mg PO DAILY #30 caps 03/08/24 05/05/24 release omeprazole 20 mg capsule,delayed 20 mg PO DAILY #40 caps 03/12/24 05/05/24 release Previous Rx's ?Medication ?Instructions ?Recorded levothyroxine 75 mcg tablet 75 mcg PO DAILY #90 tab-caps 11/12/23 liothyronine 5 mcg tablet (Cytomel) 5 mcg PO DAILY #90 tab-caps 11/12/23 ketoconazole 2 % topical cream 1 applic topical DAILY #120 grams 01/03/24 omeprazole 40 mg capsule,delayed 40 mg PO DAILY #30 caps 03/08/24 release omeprazole 20 mg capsule,delayed 20 mg PO DAILY #40 caps 03/12/24 release Allergies Allergy/AdvReac Type Severity Reaction Status Date / Time No Known Allergies Allergy Verified 05/05/24 07:37 General Stated Complaint: Chest Pain TIFFANY: 3 Course Vital Signs Vital signs: Vital Signs Temperature 35.9 C L 05/05/24 07:30 Pulse 78 05/05/24 07:30 Respiratory Rate 18 05/05/24 07:30 Blood Pressure 177/119 H 05/05/24 07:30 Pulse Oximetry 96 05/05/24 07:30 Temperature 35.9 C L 05/05/24 07:30 Temperature Source Temporal Artery Scan 05/05/24 07:30 Pulse 78 05/05/24 07:30 Respiratory Rate 18 05/05/24 07:30 Blood Pressure 177/119 H 05/05/24 07:30 Blood Pressure Position Supine 05/05/24 07:30 Pulse Oximetry 96 05/05/24 07:30 Oxygen Delivery Method Room Air 05/05/24 07:30 Oxygen Flow Rate 0 05/05/24 07:30 Medical Decision Making Quality:SDOH Health Related Social Needs: No Data to Display PFSH All Active Problems (Updated 05/05/24 @ 10:36 by Loree Garcia MD) Chest pain of unknown etiology (Acute) Lung nodule seen on imaging study (Acute ~02/2024) Vertigo (Acute) Severe episodes x2 2019; migraine variant, NEG CT-head; Neuro consult Fall 2019 New onset headache (Acute) Severe episodes x2 2019; migraine variant, NEG CT-head; Neuro consult Fall 2019 Elevated BP without diagnosis of hypertension (Acute) Single time 11/2019, nil else Snoring (Acute) Sleep study--2013 upper airway resistant syndrome with associated sleep fragmentation (oral julee rec) Onychomycosis (Acute) Tinea pedis (Acute) Plantar verruca (Acute) BMI 40.0-44.9, adult (Chronic 04/06/15) Atypical chest pain (Chronic ~2014) Intermittent; started 04/06/2015 with NEG work-up Impaired fasting glucose (Chronic ~07/2019) 07/2019: 102 with office A1C 5.4% Depression (Chronic ~2019) Medical History Acquired hypothyroidism (06/30/13) Cytomel started 12/2014 to see if would help weight Upper airway resistance syndrome s/p sleep study 2013 Rosacea (06/30/13) Adjustment disorder with mixed anxiety and depressed mood 06/30/13 related to loss of History of gluten sensitivity (08/01/13) A. Despathy Surgical History S/P colonoscopy (~09/2022) Hx of appendectomy H/O section 07/30/90 H/O: hysterectomy Cervix remains (cont pap screening) 07/30/08 Abnormal uterine bleeding w/uterine fibroids Family History Mother , UNKNOWN at age 56. Stroke TIA Heart disease Hypertension Father Cancer Sister No problems noted. Brother No problems noted. Maternal Grandfather , 91 No problems noted. Paternal Grandfather No problems noted. Maternal Grandmother , 75 CAD (coronary artery disease) Paternal Grandmother No problems noted. Sister No problems noted. Daughter Anxiety Daughter No problems noted. Daughter No problems noted. Social History Smoking/Tobacco Use Status: Never Smoking risk assessment performed?: Yes Alcohol Intake: current Alcohol Intake frequency: a few times a month Alcohol type: wine Drug use: Never Substance use type: does not use Adopted: No Caregiver/Support person: No Foster care: No Household members: none Housing: apartment Number of Children: 3 number of grandchildren: 1 Communication Needs: None Education Level: college Details: BS Degree Do you need help understanding health information?: Rarely current occupation: [employer] Pets and animals: Yes (1) Pets and animals: cat(s) Sexually active: No Do you think of yourself as: straight/heterosexual Current gender identity: female What is your relationship status?: How often do you talk on the phone with friends or family?: three or more times per week How often do you get together with friends or relatives?: twice per week How often do you attend rastafari or restorationist services?: 4 or more times per year Do you belong to any clubs or organized social groups?: yes Panel score (0-1 are the most socially isolated patients): 3 What type of physical activity do you participate in: walking Duration: 15-30 minutes/day Frequency: 3-4 times per week Tarsha/Christian: Jon Special tarsha needs: No Seatbelt use: always Helmet use: Yes (No reason) Helmet use: never Drive intox or ride w/intox straddle truck driver: No Working smoke detector in home: Yes Fire extinguisher in home: Yes Carbon monox detector in home: Yes Do you feel safe at home: Yes Do you feel safe in your relationship?: Yes
[2024-05-05 08:30] LABS: Abs Immature Grans 0.01 10^3/uL (0.0-0.06); Absolute Basophil Count 0.06 10^3/uL (0.0-0.2); Absolute Eosinophil Count 0.13 10^3/uL (0.0-0.7); Absolute Lymphocyte Count 1.68 10^3/uL (1.2-3.4); Absolute Monocyte Count 0.46 10^3/uL (0.1-0.8); Absolute Neutrophil Count 3.36 10^3/uL (1.2-6.7); Basophils % 1.1 %; Eosinophils % 2.3 %; HCT 44.4 % (36.0-46.0); HGB 15.1 g/dL (11.2-15.7); Immature Grans % 0.2 %; Lymphocytes % 29.5 %; MCH 31.3 pg (27.0-33.0); MCV 92 fL (80-95); MPV 10.4 fL (8.0-11.0); Monocytes % 8.1 %; Neutrophils % 58.8 %; Platelet Count 256 10^3/uL (130-400); RBC 4.82 10^6/uL (3.93-5.22); RDW 12.3 % (11.7-14.6)
[2024-05-05] MEDS: Acetaminophen 500 MG TAB 1000 MG PO (08:48)
[2024-05-05 09:01] LABS: ALT 29 U/L (14-59); AST 19 U/L (15-37); Albumin 3.6 g/dL (3.4-5.0); Alkaline Phosphatase 92 U/L (46-116); Anion Gap 5.7 mmol/L (3-11); BUN 16 mg/dL (7-18); Bilirubin, Total 0.58 mg/dL (0.2-1.0); CO2 29.3 mmol/L (21.0-32.0); CREATININE 0.9 mg/dL (0.55-1.02); Chloride 109 mmol/L (98-107); Estimated GFR 72.28 (mL/min/1.73m2); Glucose 102 mg/dL (74-106); Magnesium 1.9 mg/dL (1.8-2.4); Potassium 3.8 mmol/L (3.5-5.1); Sodium 144 mmol/L (136-145); Total Protein 7.1 g/dL (6.4-8.2); Troponin I 5 ng/L (<or=51)
[2024-05-05 09:12] LABS: D-Dimer 427 ng/mlFEU (<500)
[2024-05-05] MEDS: Ketorolac 15 MG/ML VIAL IVP (09:34)
[2024-05-05 10:23] LABS: Troponin I 5 ng/L (<or=51)
== END 2024-05-05 10:54 | disposition home or self-care (01) ==
PROVIDERS: Emergency Provider Emergency Medicine; PCP Nurse Practitioner Adult Health
DX: R07.9 Chest pain, unspecified (principal); M54.50 Low back pain, unspecified; R03.0 Elevated blood-pressure reading, without diagnosis of hypertension
CPT/HCPCS: 36415; 80053; 93005; 96374; 99285; 71046; 83735; 84484; 85025; 85379; 93010; 99284; J1885

== ENCOUNTER 2024-11-10 03:09 | Outpatient (CLI) | payer OTHER, SELFPAY ==
[2024-11-10 07:59] LABS: Anion Gap 9.2 mmol/L (3-11); BUN 13 mg/dL (7-18); CO2 29.8 mmol/L (21.0-32.0); CREATININE 0.9 mg/dL (0.55-1.02); Calcium 9.6 mg/dL (8.5-10.1); Calculated LDL 114 mg/dL (<100); Chloride 108 mmol/L (98-107); Cholesterol 187 mg/dL (<200); Estimated GFR 72.28 (mL/min/1.73m2); Glucose 86 mg/dL (74-106); HDL Cholesterol 60 mg/dL (>or=50); Potassium 3.7 mmol/L (3.5-5.1); Sodium 147 mmol/L (136-145); TSH (W/Ref FT4) 1.19 uIU/mL (0.36-3.74); Triglyceride 69 mg/dL (<150)
[2024-11-10 08:03] LABS: Hemoglobin A1C 5.1 % (<5.7)
== END 2024-11-10 03:10 | disposition home or self-care (01) ==
LOC: LBO 03:10
PROVIDERS: PCP Nurse Practitioner Adult Health; Referring Provider Nurse Practitioner Adult Health; Visit Provider Nurse Practitioner Adult Health
DX: R73.01 Impaired fasting glucose (principal); E03.9 Hypothyroidism, unspecified
CPT/HCPCS: 36415; 80048; 80061; 83036; 84443

== ENCOUNTER 2024-11-24 12:23 | Outpatient (REF) | payer OTHER, SELFPAY ==
--- NOTE | 2024-11-24 11:45 | PAPFT_PTH ---
PATIENT: Dianne Mckeon LOC: [facility] U#:[id number] AGE/SX: 64/F ROOM: RE11/24/[address]: Felicity Soni APRN : 1960 BED: DIS: 11/24/2024 SPEC #: [id number] RECD: 11/24/24 18:06 STATUS: YISEL REQ #: [id number] VINCE: 11/24/24 11:[address]: Felicity Soni DEPT: [facility] Cytology RECD BY: Blossom Malone Tissues: 1 - CX/ENDOCX FOR PAP SMEARS Procedures: PAP THIN PREP/UVM Screening HPV DNA PROBE Comments: [id number] (HPV 16 & 18/45)
== END 2024-11-24 12:24 | disposition home or self-care (01) ==
LOC: LBN 12:23
PROVIDERS: PCP Nurse Practitioner Adult Health; Visit Provider Nurse Practitioner Adult Health
DX: Z12.4 Encounter for screening for malignant neoplasm of cervix (principal); Z11.51 Encounter for screening for human papillomavirus (HPV)
CPT/HCPCS: 88142; 87624

== ENCOUNTER 2024-12-24 00:34 | Outpatient (CLI) | payer OTHER, SELFPAY ==
--- NOTE | 2024-12-24 07:49 | DI.MAMMO_ITS ---
Exam(s) MAMMO SCREENING EXAM: MAMMO SCREENING CLINICAL HISTORY: screening,z12.39 TECHNIQUE: Mammograms were interpreted according to the usual protocol including computer analysis w [employer] CAD system, tomosynthesis and C-view imaging. COMPARISON: 2015 through 2023 FINDINGS: The breasts are composed of scattered fibroglandular densities, Breast Density category B. No suspicious masses or suspicious microcalcifications are seen. No skin thickening or abnormal axillary lymph nodes are seen. There has been no significant change from prior exams. IMPRESSION: BI-RADS Category 1, Negative mammogram Yearly screening mammography is recommended. Breast Density - Category B, scattered fibroglandular densities. Breast density Category C or D implies that the patient has dense breast tissue. Dense breast tissue can make it harder to find cancer on a mammogram. Dense breast tissue is also associated with an incr eased risk of breast cancer. This information about the result of the mammogram report was provided to the patient to raise their awareness. Use this report when you speak with the patient about their risks for breast cancer, which includes their family history. At that time, you may recommend additional screening tests (Ultrasoun d or MRI) as these tests may add significant information. A negative radiographic report should not delay biopsy if a dominant or clinically suspicious mass is present. Up to ten percent of cancers are not identified on mammography. A negative report may reinforce clinical impression. Adenosis and dense breasts may obscure an underlying neoplasm. False positive reports average 6 to 10%. Patient will receive a letter notifying them of these results.
== END 2024-12-24 00:54 ==
LOC: DI 00:34
PROVIDERS: PCP Nurse Practitioner Adult Health; Visit Provider Nurse Practitioner Adult Health
DX: Z12.31 Encounter for screening mammogram for malignant neoplasm of breast (principal); R92.323 Mammographic fibroglandular density, bilateral breasts
CPT/HCPCS: 77063; 77067